=== PATIENT | female | born 1940 | race Caucasian/White ===

== ENCOUNTER 2019-01-23 15:26 | Inpatient (IN) | payer BC, MEDICAID ==
[~2019-01-23] VITALS: Ht 154.9 cm; Wt 59.0 kg
[~2019-01-23 15:26] MED LIST: AMLO10TA PO; ATEN25TA7 PO
[2019-01-23 15:38] VITALS: BP 139/74
--- NOTE | 2019-01-23 15:45 | NUR ---
Patient being evaluated by DR CALLES at bedside.
--- NOTE | 2019-01-23 16:01 | NUR ---
PT TAKEN TO CT VIA [place], ACCOMPANIED BY FREIGHT CAR INSPECTOR.
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
--- NOTE | 2019-01-23 16:15 | NUR ---
PT'S BROTHER; LISA PERKINS PHONE NUMBER [phone]. Addendum: 01/23/19 at 1639 by [facility] BROTHER AT BEDSIDE. PT WAS YELLING AT HIM & CRYING.
[2019-01-23 16:24] LABS: BASOPHILS % (AUTO) 0.3 % (0.0-2.0); EOSINOPHILS # (AUTO) 0.3 K/uL (0-0.4); EOSINOPHILS % (AUTO) 4.8 % (0.0-4.0); HEMATOCRIT 36.7 % (36-48); HEMOGLOBIN 12.2 g/dL (12.0-16.0); LYMPHOCYTES # (AUTO) 1.3 K/uL (2.5-16.5); LYMPHOCYTES % (AUTO) 18.9 % (20.5-51.1); MEAN CORPUSCULAR HEMOGLOBIN 30 pg (27-31); MEAN CORPUSCULAR HGB CONC 33 g/dL (33-37); MEAN CORPUSCULAR VOLUME 90.9 fL (80-94); MONOCYTES # (AUTO) 0.6 K/uL (0.8-1.0); MONOCYTES % (AUTO) 8.3 % (1.7-9.3); NEUTROPHILS # (AUTO) 4.8 K/uL (1.8-7.7); NEUTROPHILS % (AUTO) 67.7 % (42.2-75.2); PLATELET COUNT (AUTO) 258 K/uL (140-450); RED BLOOD CELL COUNT(AUTO) 4.04 MIL/uL (4.20-5.40); RED CELL DISTRIBUTION WIDTH 14.8 % (11.6-13.7)
--- NOTE | 2019-01-23 16:29 | NUR ---
PT W/C ASSISTANCE TO REST ROOM.
[2019-01-23 16:48] LABS: ALBUMIN 3.2 g/dL (3.4-5.0); ANION GAP 13.6 (8-16); ASPARTATE AMINOTRANSFERASE 16 U/L (15-37); CARBON DIOXIDE 26.1 mmol/L (21-32); CHLORIDE 110 mmol/L (98-107); CREATININE 2.3 mg/dL (0.6-1.3); GLUCOSE 111 mg/dL (74-106); POTASSIUM 3.7 mmol/L (3.5-5.1); SODIUM SERUM 146 mmol/L (136-145); THYROID STIMULATING HORMONE 1.45 uIU/mL (0.34-3.74); TOTAL BILIRUBIN 0.3 mg/dL (0.0-1.0); UREA NITROGEN, BLOOD 41 mg/dL (7-18)
[2019-01-23 16:59] LABS: APPEARANCE,URINE CLEAR (CLEAR); BILIRUBIN,URINE NEGATIVE (NEGATIVE); BLOOD, URINE TRACE-L (NEGATIVE); COLOR,URINE YELLOW (YELLOW); LEUKOCYTE ESTERASE ,URINE 2+ (NEGATIVE); NITRITE, URINE POSITIVE (NEGATIVE); UGLUCOSE NEGATIVE (NEGATIVE)
[2019-01-23 17:00] LABS: ACETAMINOPHEN < 0.5 ug/ml (10-30); SALICYLATE < 2.8 mg/dL (2.8-20.0)
[2019-01-23 17:09] LABS: RBC,URINE 0-5 /HPF (0-5); WBC,URINE 80-100 /HPF (0-5)
[2019-01-23] MEDS ORDERED: NACL 0.9% 1,000 ML IV ONE (17:10)
[2019-01-23 17:11] LABS: BARBITURATE, URINE NEG. ng/ml (NEG <=200); BENZODIAZEPINE, URINE NEG. ng/mL (NEG <=200); CANNABINOID, URINE NEG. ng/mL (NEG <=50); COCAINE, URINE NEG. ng/mL (NEG <=300); OPIATE, URINE NEG. ng/mL (NEG <=2000); PHENCYCLIDINE SCREEN,URINE NEG. ng/mL (NEG <=25)
[2019-01-23] MEDS ORDERED: cefTRIAXone 1,000 MG VIAL ONE (17:26)
[2019-01-23] MEDS ORDERED: amLODIPine 5 MG TAB PO ONE (17:40)
[2019-01-23] MEDS ORDERED: MAG SULF 2000 MG/WATER PREMIX 50 ML IV PRN ×2 (19:05→19:30)
[2019-01-23] MEDS ORDERED: ALBUTEROL 0.083% 2.5 MG/3 ML NEBU INH PRN (19:05)
[2019-01-23] MEDS ORDERED: guaiFENesin DM 200/20 MG-10 ML 10 ML UDC PO PRN (19:05)
[2019-01-23] MEDS ORDERED: DOCUSATE SODIUM 250 MG GELCAP PO PRN (19:05)
[2019-01-23] MEDS ORDERED: ACETAMINOPHEN 325 MG TAB PO PRN (19:05)
[2019-01-23] MEDS ORDERED: LORazepam 2 MG/ML VIAL IVP PRN (19:05)
[2019-01-23] MEDS ORDERED: POTASSIUM CHLORIDE 10 MEQ TABER PO PRN (19:05)
[2019-01-23] MEDS ORDERED: IPRATROPIUM 0.02% 0.5 MG/2.5 ML NEBU INH PRN (19:05)
[2019-01-23] MEDS ORDERED: ACETAMINOPHEN 650 MG SUPP RC PRN (19:05)
[2019-01-23] MEDS ORDERED: ONDANSETRON 4 MG/2 ML VIAL IVP PRN (19:05)
[2019-01-23] MEDS ORDERED: POTASSIUM CHLORIDE 40 MEQ, LIDOCAINE 1% 25 MG in NACL 0.9% 250 ML IV PRN (19:05)
[2019-01-23] MEDS ORDERED: BISACODYL 10 MG SUPP RC PRN (19:05)
[2019-01-23] MEDS ORDERED: HYDROcodone/APAP 5/325 MG 1 TAB TAB PO PRN (19:05)
[2019-01-23] MEDS ORDERED: ALUMINUM HYD/MAG/SIMETHICONE 30 ML UDC PO PRN (19:05)
[2019-01-23] MEDS ORDERED: SODIUM PHOSPHATE 118 ML ENEM RC PRN (19:05)
[2019-01-23] MEDS: NACL 0.9% 1,000 ML IV SCH (19:05)
[2019-01-23] MEDS ORDERED: MAGNESIUM OXIDE 400 MG TAB PO PRN (19:05)
--- NOTE | 2019-01-23 19:12 | NUR ---
RECEIVED REPORT FROM JONNATHAN PUCKETT.
--- NOTE | 2019-01-23 19:12 | NUR ---
PT IS AWAKE, ALERT, TALKATIVE. SITTER AT BEDSIDE.
--- NOTE | 2019-01-23 19:13 | NUR ---
Pt report given to NATHANIEL DE SANITAGO. Transfer of care at this time.
--- NOTE | 2019-01-23 19:33 | NUR ---
Patient will be admitted to care of Dr. Sue. Admited to MS. Will go to room 109 B. Belongings list completed. Report to MEGGAN Live.
[2019-01-23 19:35] VITALS: BP 130/67
--- NOTE | 2019-01-23 19:35 | NUR ---
Admitted from ER TO MED SURG UNIT, with chief complaint of 5150 FOR GRAVELY DISABLED , 78 y/o ,Female, Cooperative, AWAKE, A/OX4. RESPIRATION EVEN AND UNLABORED. IV SALINE LOCK AT THE RIGHT FOREARM G20, PATENT AND INTACT. DOES NOT KNOW WHY SHE IS IN THE HOSPITAL, EXPLAINED THAT PD PUT HER ON 5150 FOR GRAVELY DISABLED, LIVING IN POOR CONDITION, WITH RATS IN HER APT. STATED "I'M FEEDING THE RATS WITH POISON." CLAIMED ABLE TO WALK AROUND HOUSE BY HOLDING TO FURNITURE AND USES WALKER ONLY WHENEVER SHE GETS OUT. HEAD TO TOE ASSESSMENT DONE WITH CHARGE NURSE MAGALIE, PATIENT WITH SCATTERED TINY BITES IN HER SKIN. SKIN INTACT. DENIES PAIN 0/10. oriented to call light, bed, phone,television, bathroom, smoking policy,visiting hours, procedures, ID bracelet on. Belongings list checked.
--- NOTE | 2019-01-23 19:35 | NUR ---
Patient's Plan of Care was discussed and reviewed with CERTIFIED PERFORMANCE TECHNOLOGIST: MICHELE ZAVALA
--- NOTE | 2019-01-23 19:40 | NUR ---
SITTER NEAR DOOR MONITORING PATIENT.
--- NOTE | 2019-01-23 20:45 | NUR ---
STATED SHE HAS NOT EATEN SINCE 6 O'CLOCK TODAY. TUNA SANDWICH GIVEN, REQUESTED FOR ANOTHER ONE. ATE 100 %.
--- NOTE | 2019-01-23 21:40 | NUR ---
WAKEN UP FROM SLEEP, CRYING LOUD. WHEN ASKED WHY SHE IS CRYING, STATED "I DON'T KNOW." BACK TO SLEEP AFTER 5 MINUTES.
[2019-01-24] VITALS: BP 132/65
--- NOTE | 2019-01-24 | NUR ---
SLEEPING COMFORTABLY IN BED.
[2019-01-24] MEDS: ZOLPIDEM 5 MG TAB PO PRN (02:40)
--- NOTE | 2019-01-24 02:40 | NUR ---
COMPLAINT OF UNABLE TO SLEEP, MEDICATED WITH AMBIEN ORDERED.
--- NOTE | 2019-01-24 03:40 | NUR ---
SLEEPING COMFORTABLY IN BED.
--- NOTE | 2019-01-24 06:30 | NUR ---
STILL SLEEPING COMFORTABLY IN BED. CONDITION REMAIN STABLE. WILL ENDORSE TO AM NURSE FOR CONTINUITY OF CARE.
--- NOTE | 2019-01-24 07:05 | NUR ---
ENDORSED TO AM SHIFT NURSE FOR CONTINUITY OF CARE.
--- NOTE | 2019-01-24 07:21 | NUR ---
PT IS STILL SLEEPING. NO SIGNS OF DISTRESS. WILL ASSESS PT LATER WHEN SHE IS MORE AWAKE. SCD'S ON. IV FLUIDS, NS INFUSING AT 80ML/HR. IV SITE R FA 20G. WILL CONTINUE TO MONITOR PT.
[2019-01-24 08:00] VITALS: BP 151/65
--- NOTE | 2019-01-24 08:02 | NUR ---
PATIENT HAS BEEN SCREENED AND CATEGORIZED LOW NUTRITION RISK. PATIENT WILL BE SEEN WITHIN 7 DAYS OF ADMISSION. 01/30/[address]
[2019-01-24] MEDS: HYDROcodone/APAP 5/325 MG 1 TAB TAB PO PRN ×2 (08:07→16:22)
--- NOTE | 2019-01-24 08:08 | NUR ---
EATING BREAKFAST, ALL OF THE SUDDEN C/O VICK, CRYING. ADMINISTERED A NORCO. PT IS CALM ONCE AGAIN. WILL CONTINUE TO MONITOR PT.
[2019-01-24 08:17] LABS: ANION GAP 13.4 (8-16); CARBON DIOXIDE 25.4 mmol/L (21-32); CHLORIDE 113 mmol/L (98-107); CREATININE 2.2 mg/dL (0.6-1.3); GLUCOSE 67 mg/dL (74-106); POTASSIUM 3.8 mmol/L (3.5-5.1); SODIUM SERUM 148 mmol/L (136-145); UREA NITROGEN, BLOOD 42 mg/dL (7-18)
[2019-01-24] MEDS: NACL 0.9% 1,000 ML IV SCH (08:26)
--- NOTE | 2019-01-24 09:35 | NUR ---
PT IS ASKING FOR HER BP MEDS. PER PT, SHE TAKES IT EARLY IN THE MORNING. INFORMED HER THAT SHE NEEDS TO BE SEEN BY THE DR FIRST. ONCE SHE IS SEEN, HE WILL ORDER THE BP MEDS. WELDING ESTIMATOR ALSO AWARE. PT IS ANXIOUS. WILL CONTINUE TO MONITOR PT.
--- NOTE | 2019-01-24 13:08 | NUR ---
Spoke to BERTHA Conrad. She told me that the pt. was recently in [facility]. She also told me the this pt. lives with her Mega. 's and [phone]. She also gave me Daughter Quita's .
[2019-01-24] MEDS ORDERED: CIPR250T6 PO (14:55)
[2019-01-24] MEDS ORDERED: FURO-570 PO (15:07)
[2019-01-24] MEDS ORDERED: SIMV20TA6 PO (15:07)
[2019-01-24] MEDS ORDERED: METO25TE2 PO (15:07)
[2019-01-24] MEDS ORDERED: FERR325E14 PO (15:07)
[2019-01-24] MEDS ORDERED: ALLO100T21 PO (15:07)
[2019-01-24] MEDS ORDERED: ATI.5 PO (15:07)
[2019-01-24] MEDS ORDERED: CALC3OIN TP (15:07)
[2019-01-24] MEDS ORDERED: AMLO10TA PO (15:07)
--- NOTE | 2019-01-24 15:08 | NUR ---
DR VACA IS HERE. ASSESSED PT. OK PER TO DC ONCE CLEARED WITH PSYCH. [facility] CALLED. ASKED QUESTIONS RE PT. WILL LET US KNOW IF THEY WILL ACCEPT HIM. HOME MED INFO GOTTEN FROM [facility]. ADDED TO PT CHART. WILL AWAIT FURTHER INSTRUCTIONS.
[2019-01-24] MEDS ORDERED: amLODIPine 5 MG TAB PO SCH (15:34)
[2019-01-24] MEDS ORDERED: FERROUS SULFATE 325 MG TABEC PO SCH (15:36)
[2019-01-24 16:00] VITALS: BP 167/71
[2019-01-24] MEDS: NACL 0.45% 1,000 ML IV SCH (16:13)
--- NOTE | 2019-01-24 17:00 | NUR ---
DR HINDS WAS HERE TO ASSESS PT. PER MD, MAY NOT BE READY TO GO HOME D/T LIVING SITUATION. SS ON THE CASE. WILL AWAIT ORDERS.
--- NOTE | 2019-01-24 18:16 | NUR ---
PT WONDERING IF SHE WILL LEAVE FOR HOME TODAY. NO DISCHARGE ORDERS. NOTIFIED PT THERE AER NO DC ORDERS. MAYBE WAIT TIL TOMORROW. CALLED FRIEND BRETT AND LISA, BROTHER FOR PT. WILL CONTINUE TO MONITOR PT.
--- NOTE | 2019-01-24 19:11 | NUR ---
ENDORSED PT TO THE PIER HAND NURSE AT BEDSIDE FOR CONTINUITY OF CARE. PT IS IN STABLE CONDITION. FINALLY GOT TO SPEAK TO LISA, BROTHER RE DOGS.
--- NOTE | 2019-01-24 19:12 | NUR ---
RECEIVED REPORT FROM DAY SHIFT NURSE MARTHA-RN AT BEDSIDE. PT RESTING IN BED, AOX3-CONFUSED, ON ROOM AIR WITH RIGHT FA #20G RUNNING NS @80ML/HR. DISCUSSED PLAN OF CARE AND PT VERBALIZED UNDERSTANDING. NO S/S OF RESPIRATORY DISTRESS OR DISCOMFORT NOTED AT THIS TIME. BED IN LOWEST POSITION, BED BREAKS ON, BOTH SIDE RAILS UP AND FALL PRECAUTIONS IN PLACE. BED SIDE TABLE AND CALL LIGHT ARE WITHIN REACH. WILL CONTINUE TO MONITOR.
[2019-01-24] MEDS: METOPROLOL 25 MG TAB PO SCH (19:59)
[2019-01-24] MEDS: QUEtiapine FUMARATE 25 MG TAB PO SCH (19:59)
[2019-01-24] MEDS: SIMVASTATIN 20 MG TAB PO SCH (19:59)
[2019-01-24 20:00] VITALS: BP 155/70
--- NOTE | 2019-01-24 20:00 | NUR ---
VITAL SIGNS TAKEN AND TOLERATED WELL. NO S/S OF RESPIRATORY DISTRESS OR DISCOMFORT NOTED AT THIS TIME. SCHEDULED MEDICATIONS GIVEN AND TOLERATED WELL. WILL CONTINUE TO MONITOR.
--- NOTE | 2019-01-24 20:54 | NUR ---
PT C/O ACID REFLUX, MAALOX GIVEN AND TOLERATED WELL. NO S/S OF RESPIRATORY DISTRESS OR DISCOMFORT NOTED AT THIS TIME. WILL CONTINUE TO MONITOR.
[2019-01-24] MEDS ORDERED: LORazepam 0.5 MG TAB PO PRN (21:00)
--- NOTE | 2019-01-24 22:00 | NUR ---
PT SLEEPING IN BED. NO S/S OF RESPIRATORY DISTRESS OR DISCOMFORT NOTED AT THIS TIME. WILL CONTINUE TO MONITOR.
--- NOTE | 2019-01-25 | NUR ---
PT REFUSED VITAL SIGNS SAYING "GET OUT OF MY ROOM AND LET ME SLEEP." NO S/S OF RESPIRATORY DISTRESS OR DISCOMFORT NOTED AT THIS TIME. WILL CONTINUE TO MONITOR.
--- NOTE | 2019-01-25 02:00 | NUR ---
PT CONTINUES TO SLEEP IN BED. NO S/S OF RESPIRATORY DISTRESS OR DISCOMFORT NOTED AT THIS TIME. WILL CONTINUE TO MONITOR.
--- NOTE | 2019-01-25 04:00 | NUR ---
PT CONTINUES TO SLEEP IN BED. NO S/S OF RESPIRATORY DISTRESS OR DISCOMFORT NOTED AT THIS TIME. WILL CONTINUE TO MONITOR.
[2019-01-25] MEDS: NACL 0.45% 1,000 ML IV SCH ×2 (05:30→16:05)
--- NOTE | 2019-01-25 06:00 | NUR ---
PT CONTINUES TO SLEEP IN BED. NO S/S OF RESPIRATORY DISTRESS OR DISCOMFORT NOTED AT THIS TIME. WILL CONTINUE TO MONITOR.
--- NOTE | 2019-01-25 07:30 | NUR ---
RECEIVED BED SIDE REPORT FROM AUTOMOBILE SPRING REPAIRER RN. PT SLEEPING COMFORTABLY IN BED WITH CALL LIGHT WITHIN REACH. SITTER AT BEDSIDE. R FOREARM 20G RUNNING 0.45% NORMAL SALINE, NO INFILTRATION OR PAIN NOTED. PT IS INCONTINENT, PT EVAL ORDER IN AND WILL WAIT FOR PT TO COME. PT A/OX4. BP 186/85, GAVE AM BP MEDS, WILL RE-CHECK BP
[2019-01-25 07:47] LABS: MAGNESIUM 2.1 mg/dL (1.8-2.4)
[2019-01-25 07:50] LABS: ANION GAP 12.8 (8-16); CARBON DIOXIDE 25.6 mmol/L (21-32); CHLORIDE 112 mmol/L (98-107); CREATININE 2.2 mg/dL (0.6-1.3); GLUCOSE 76 mg/dL (74-106); POTASSIUM 4.4 mmol/L (3.5-5.1); SODIUM SERUM 146 mmol/L (136-145); UREA NITROGEN, BLOOD 46 mg/dL (7-18)
[2019-01-25 08:00] VITALS: BP 186/85
[2019-01-25 08:09] LABS: BASOPHILS % (AUTO) 0.5 % (0.0-2.0); EOSINOPHILS # (AUTO) 0.5 K/uL (0-0.4); EOSINOPHILS % (AUTO) 7.1 % (0.0-4.0); HEMATOCRIT 33.8 % (36-48); HEMOGLOBIN 11.2 g/dL (12.0-16.0); LYMPHOCYTES # (AUTO) 1.7 K/uL (2.5-16.5); MEAN CORPUSCULAR HEMOGLOBIN 31 pg (27-31); MEAN CORPUSCULAR HGB CONC 33 g/dL (33-37); MEAN CORPUSCULAR VOLUME 92.2 fL (80-94); MONOCYTES # (AUTO) 0.6 K/uL (0.8-1.0); MONOCYTES % (AUTO) 7.6 % (1.7-9.3); NEUTROPHILS # (AUTO) 4.8 K/uL (1.8-7.7); NEUTROPHILS % (AUTO) 62.8 % (42.2-75.2); PLATELET COUNT (AUTO) 214 K/uL (140-450); RED BLOOD CELL COUNT(AUTO) 3.66 MIL/uL (4.20-5.40); RED CELL DISTRIBUTION WIDTH 14.6 % (11.6-13.7); WHITE BLOOD COUNT (AUTO) 7.6 K/uL (4.8-10.8)
[2019-01-25] MEDS: ALLOPURINOL 100 MG TAB PO SCH (08:36)
[2019-01-25] MEDS: CALCITRIOL 0.25 MCG CAPLF PO SCH (08:36)
[2019-01-25] MEDS: METOPROLOL 25 MG TAB PO SCH ×2 (08:36→19:52)
[2019-01-25] MEDS: amLODIPine 5 MG TAB PO SCH (08:36)
[2019-01-25] MEDS: FERROUS SULFATE 325 MG TABEC PO SCH (08:37)
[2019-01-25] MEDS ORDERED: SIMVASTATIN 20 MG PO SCH (09:00)
[2019-01-25] MEDS ORDERED: CALCITRIOL 0.5 MCG PO SCH (09:00)
[2019-01-25] MEDS ORDERED: CALCITRIOL 0.5 MCG TP SCH (09:00)
--- NOTE | 2019-01-25 10:34 | NUR ---
BP WENT DOWN TO 158/75, WILL CONTINUE TO MONITOR
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
[2019-01-25] MEDS: MORPHINE SULFATE 2 MG/ML SYR IVP PRN (10:47)
--- NOTE | 2019-01-25 12:31 | NUR ---
P.T. NOTES P.T. YASEMIN COMPLETED, REFER TO YASEMIN FOR DETAILS. Addendum: 01/25/19 at 1232 by Luna Ovalle PT Amended: Links added.
--- NOTE | 2019-01-25 12:36 | NUR ---
PT SLEEPING IN BED COMFORTABLY, SITTER AT BEDSIDE, IV RUNNING NS AT 80CC/HR, WILL CONTINUE TO MONITOR
--- NOTE | 2019-01-25 13:00 | NUR ---
Followed up regarding discharge planning with BERTHA Cummings. Informed her that PT is recommended for patient after discharge. Zoila reported that she will be calling the insurance company regarding possible SNF placement. SW/BERTHA will follow up as needed.
--- NOTE | 2019-01-25 14:54 | NUR ---
CALLED [facility] [phone] SPOKE WITH ASHLEY REGARDING SNF PLACEMENT FOR PT PER ASHLEY TO FAX ALL THE REQUEST TO [phone] . WAITING 'S ORDER TO FAX.
--- NOTE | 2019-01-25 15:51 | NUR ---
Patient� nurse called requesting information about patient�s discharge. EDGARD informed patient�s nurse Antony. Antony was also informed of PT results and CM Zoila contacting insurance regarding possible placement.
[2019-01-25 16:00] VITALS: BP 118/64
--- NOTE | 2019-01-25 19:14 | NUR ---
GAVE BED SIDE REPORT TO SEAL MIXING OPERATOR RN. PT IN THE BATHROOM WITH FINANCIAL SYSTEMS MANAGER. IN STABLE CONDITION
--- NOTE | 2019-01-25 19:15 | NUR ---
RECEIVED REPORT FROM DAY SHIFT NURSE RIMMA-RN AT BEDSIDE. PT RESTING IN BED, AOX3-CONFUSED, ON ROOM AIR WITH RIGHT FA #20G RUNNING NS @80ML/HR. DISCUSSED PLAN OF CARE AND PT VERBALIZED UNDERSTANDING. NO S/S OF RESPIRATORY DISTRESS OR DISCOMFORT NOTED AT THIS TIME. BED IN LOWEST POSITION, BED BREAKS ON, BOTH SIDE RAILS UP AND FALL PRECAUTIONS IN PLACE. BED SIDE TABLE AND CALL LIGHT ARE WITHIN REACH. WILL CONTINUE TO MONITOR.
[2019-01-25] MEDS: CIPROFLOXACIN 250 MG TAB PO SCH (19:51)
[2019-01-25] MEDS: QUEtiapine FUMARATE 25 MG TAB PO SCH (19:51)
[2019-01-25] MEDS: SIMVASTATIN 20 MG TAB PO SCH (19:52)
[2019-01-25 20:00] VITALS: BP 151/80
--- NOTE | 2019-01-25 20:00 | NUR ---
VITAL SIGNS TAKEN AND TOLERATED WELL. ELEVATED BP NOTED. NO S/S OF RESPIRATORY DISTRESS OR DISCOMFORT NOTED AT THIS TIME. WILL CONTINUE TO MONITOR.
--- NOTE | 2019-01-25 20:01 | NUR ---
SCHEDULED MEDICATIONS GIVEN AND TOLERATED WELL. NO S/S OF RESPIRATORY DISTRESS OR DISCOMFORT NOTED AT THIS TIME. WILL CONTINUE TO MONITOR.
--- NOTE | 2019-01-25 22:00 | NUR ---
PT RESTING IN BED. NO S/S OF RESPIRATORY DISTRESS OR DISCOMFORT NOTED AT THIS TIME. WILL CONTINUE TO MONITOR.
[2019-01-25] MEDS: ZOLPIDEM 5 MG TAB PO PRN (22:52)
--- NOTE | 2019-01-25 22:52 | NUR ---
PT C/O UNABLE TO SLEEP REQUESTING A SLEEPING AID. AMBIEN GIVEN AND TOLERATED WELL. NO S/S OF RESPIRATORY DISTRESS OR DISCOMFORT NOTED AT THIS TIME. WILL CONTINUE TO MONITOR.
[2019-01-26] VITALS: BP 151/88
--- NOTE | 2019-01-26 | NUR ---
VITAL SIGNS TAKEN AND TOLERATED WELL. NO S/S OF RESPIRATORY DISTRESS OR DISCOMFORT NOTED AT THIS TIME. WILL CONTINUE TO MONITOR.
--- NOTE | 2019-01-26 02:00 | NUR ---
PT CONTINUES TO SLEEP IN BED. NO S/S OF RESPIRATORY DISTRESS OR DISCOMFORT NOTED AT THIS TIME. WILL CONTINUE TO MONITOR.
--- NOTE | 2019-01-26 04:00 | NUR ---
PT CONTINUES TO SLEEP IN BED. NO S/S OF RESPIRATORY DISTRESS OR DISCOMFORT NOTED AT THIS TIME. WILL CONTINUE TO MONITOR.
[2019-01-26] MEDS: NACL 0.45% 1,000 ML IV SCH ×2 (05:25→17:42)
--- NOTE | 2019-01-26 05:25 | NUR ---
NEW BAG OF IVF HUNG AND TOLERATED WELL. NO S/S OF RESPIRATORY DISTRESS OR DISCOMFORT NOTED AT THIS TIME. WILL CONTINUE TO MONITOR.
--- NOTE | 2019-01-26 07:09 | NUR ---
ENDORSED TO DAY SHIFT NURSE ARMAND FOR CONTINUITY OF CARE.
--- NOTE | 2019-01-26 07:10 | NUR ---
RECEIVED BEDSIDE REPORT FROM DAY SHIFT RNCELESTINO. PATIENT SLEEPING IN BED. NO SIGNS OF DISTRESS NOTED ON RA. SAFETY PRECAUTIONS IN PLACE. IV INFUSING WELL TO RIGHT FOREARM 22G. PATIENT STABLE.
[2019-01-26 07:35] LABS: BASOPHILS % (AUTO) 0.5 % (0.0-2.0); EOSINOPHILS # (AUTO) 0.5 K/uL (0-0.4); EOSINOPHILS % (AUTO) 7.6 % (0.0-4.0); HEMOGLOBIN 11.7 g/dL (12.0-16.0); LYMPHOCYTES # (AUTO) 1.7 K/uL (2.5-16.5); LYMPHOCYTES % (AUTO) 27.7 % (20.5-51.1); MEAN CORPUSCULAR HEMOGLOBIN 30 pg (27-31); MEAN CORPUSCULAR HGB CONC 32 g/dL (33-37); MEAN CORPUSCULAR VOLUME 92.1 fL (80-94); MONOCYTES # (AUTO) 0.5 K/uL (0.8-1.0); MONOCYTES % (AUTO) 8.2 % (1.7-9.3); NEUTROPHILS # (AUTO) 3.4 K/uL (1.8-7.7); PLATELET COUNT (AUTO) 176 K/uL (140-450); RED BLOOD CELL COUNT(AUTO) 3.91 MIL/uL (4.20-5.40); RED CELL DISTRIBUTION WIDTH 14.3 % (11.6-13.7)
[2019-01-26 08:00] VITALS: BP 166/71
[2019-01-26 08:09] LABS: ANION GAP 13.3 (8-16); CARBON DIOXIDE 25.2 mmol/L (21-32); CHLORIDE 110 mmol/L (98-107); CREATININE 1.9 mg/dL (0.6-1.3); GLUCOSE 77 mg/dL (74-106); POTASSIUM 4.5 mmol/L (3.5-5.1); SODIUM SERUM 144 mmol/L (136-145); UREA NITROGEN, BLOOD 46 mg/dL (7-18)
[2019-01-26 08:14] LABS: MAGNESIUM 2.1 mg/dL (1.8-2.4)
[2019-01-26] MEDS: MORPHINE SULFATE 2 MG/ML SYR IVP PRN ×2 (09:11→13:56)
--- NOTE | 2019-01-26 09:11 | NUR ---
PATIENT C/O SEVERE HEADACHE/NECK PAIN. MORPHINE GIVEN. VITALS STABLE. WILL CONTINUE TO MONITOR.
[2019-01-26] MEDS: amLODIPine 5 MG TAB PO SCH (09:20)
[2019-01-26] MEDS: FERROUS SULFATE 325 MG TABEC PO SCH (09:21)
[2019-01-26] MEDS: METOPROLOL 25 MG TAB PO SCH ×2 (09:21→20:31)
[2019-01-26] MEDS: CIPROFLOXACIN 250 MG TAB PO SCH ×2 (09:21→20:30)
[2019-01-26] MEDS: CALCITRIOL 0.25 MCG CAPLF PO SCH (09:21)
--- NOTE | 2019-01-26 09:21 | NUR ---
ADMINISTERED SCHEDULED MEDICATIONS. PATIENT TOLERATED WELL. Addendum: 01/26/19 at 1807 by Serene Mcgowan RN DURING MEDICATION ADMINISTRATION PATIENT SAYS INAPPROPRIATE THING. STATED THAT "THE NURSES ARE ALL MASTURBATING INSTEAD OF WORKING. IT'S OKAY TO MASTURBATE, JUST NOT WHILE YOU'RE WORKING."
--- NOTE | 2019-01-26 11:03 | NUR ---
PATIENT SLEEPING. NO SIGNS OF DISTRESS ON RA. SAFETY PRECAUTIONS IN PLACE.
--- NOTE | 2019-01-26 12:30 | NUR ---
PATIENT SLEEPING. NO SIGNS OF DISTRESS ON RA. SAFETY PRECAUTIONS IN PLACE.
--- NOTE | 2019-01-26 13:56 | NUR ---
PATIENT REFUSING TO BE CHANGED. WANTS TO SLEEP IN THE "WARMTH" OF HER PEE. EDUCATED PATIENT ON NEED FOR US TO KEEP HER SKIN CLEAN AND DRY. WITH TEA BAG MACHINE TENDER ASSISTANCE CHANGED HER LINED, AND GOWN, AND PROVIDED KIN CARE. PATIENT /O SEVER HEADACHE DURING REPOSITIONING. ADMINISTERED PRN MORPHINE. WILL REEVALUATE.
--- NOTE | 2019-01-26 14:30 | NUR ---
PATIENT STATES "I AM LEAVING AT 3 PM, BUT DON'T CALL MY BROTHER. HE IS GOING THROUGH MALE MENOPAUSE." "CALL MY [employer], THEY WILL PICK ME UP." PATIENT FLUCTUATES BETWEEN APPROPRIATE AND INAPPROPRIATE RESPONSES. SHE BECAME VERY AGITATED WHEN SHE WAS TOLD SHE IS NOT LEAVING AT 3PM. SHE STATED THAT "I NEED TO GET HOME TO TAKE CARE OF MY DOGS." I CALLED HER BROTHER AND LEFT A MESSAGE TO ENSURE SOMEONE IS CARING FOR THE DOGS.
--- NOTE | 2019-01-26 15:00 | NUR ---
CALLED DR. BARBOSA GROUP TO GET CLARIFICATION OF MENTAL STATUS. PATIENT IS EXHIBITING INABILITY TO CARE FOR SELF. DR. YUEN SIGNAL MAINTENANCE TECHNICIAN FOR DR. CLAYTON. WILL AWAIT FURTHER INSTRUCTIONS.
--- NOTE | 2019-01-26 15:30 | NUR ---
BROTHER CALLED BACK. HE IS TAKING CARE OF THE DOGS AND ASSURED THE PATIENT THAT HE WILL CONTINUE TO TAKE CARE OF THE DOGS. HE HAS TOLD HER SEVERAL TIMES, BUT SHE IS VERY FORGETFUL. ASSURANCE THAT THE DOGS ARE BEING CARED FOR WAS VERY CALMING FOR PATIENT. SHE IS NOW COOPERATIVE AND UNDERSTANDS THAT WE ARE WAITING FOR A HOME SAFETY CHECK BEFORE PATIENT CAN BE DISCHARGED HOME.
[2019-01-26 16:00] VITALS: BP 187/88
--- NOTE | 2019-01-26 17:20 | NUR ---
PATIENT BLOOD PRESSURE IS ELEVATED 187/88. ADMINISTERED CATAPRESS, WILL REEVALUATE AT 1907.
[2019-01-26] MEDS: cloNIDine 0.1 MG TAB PO PRN (17:37)
--- NOTE | 2019-01-26 18:30 | NUR ---
DR. YUEN HAS NOT RETURNED MY CALL. PATIENT WAS EDUCATED THAT DISCHARGE IS PENDING A HOME SAFETY INSPECTION AND PSYCH CONSULTATION; HOWEVER, PATIENT FLUCTUATES BETWEEN VERBALIZING UNDERSTANDING OF THE PLAN OF CARE AND WANTING TO LEAVE AMA. PATIENT IS CURRENTLY CONTENT WITH THE PLAN OF CARE.
--- NOTE | 2019-01-26 19:10 | NUR ---
GAVE BEDSIDE REPORT TO STEWARD/STEWARDESS NIGHT RNLIGIA. PATIENT IN STABLE CONDITION.
--- NOTE | 2019-01-26 19:11 | NUR ---
REPORT RECEIVED FROM AM NURSE AT BEDSIDE. PT IN STABLE CONDITION. AAOX3-4. INTRODUCED SELF TO PT. BOARD UPDATED. NO COMPLAINTS OF PAIN. NO SOB. AFEBRILE. PT 5150 GRAVELY DISABLED. IV SITE R FA 20G RUNNING NS@80ML/HR PATENT AND INTACT. SKIN WARM, DRY, AND INTACT WITH NO OPEN WOUNDS. BED LOCKED IN LOW POSITION. CALL GRIFFIN WITHIN REACH. SAFETY PRECAUTION IN PLACE. ALL NEEDS MET AT THIS TIME.
[2019-01-26] MEDS: QUEtiapine FUMARATE 25 MG TAB PO SCH (20:30)
--- NOTE | 2019-01-26 20:30 | NUR ---
CIPRO, LOPRESSOR, SEROQUEL, AND ZOCOR GIVEN. AMBIEN GIVEN FOR SLEEP. PT TOLERATED WELL.
[2019-01-26] MEDS: ZOLPIDEM 5 MG TAB PO PRN (20:31)
[2019-01-26] MEDS: SIMVASTATIN 20 MG TAB PO SCH (20:32)
--- NOTE | 2019-01-26 22:01 | NUR ---
PT SLEEPING COMFORTABLY IN BED. NO S/S OF DISTRESS NOTED. RESPIRATIONS EVEN, UNLABORED, AND WNL. WILL CONTINUE TO MONITOR.
[2019-01-27] VITALS: BP 131/61
--- NOTE | 2019-01-27 00:05 | NUR ---
PT SLEEPING COMFORTABLY IN BED BUT AROUSABLE FOR VS CHECK. NO S/S OF DISTRESS NOTED. NO COMPLAINTS OF PAIN. NO SOB. AFEBRILE. WILL CONTINUE TO MONITOR.
[2019-01-27] MEDS: diphenhydrAMINE 50 MG/ML VIAL IVP PRN ×2 (01:47→18:06)
--- NOTE | 2019-01-27 01:47 | NUR ---
BENADRYL GIVEN FOR ITCHINESS. PT TOLERATED WELL.
--- NOTE | 2019-01-27 04:00 | NUR ---
PT SLEEPING COMFORTABLY IN BED. NO S/S OF DISTRESS NOTED. PT HAS NO COMPLAINTS OF PAIN. NO SOB. AFEBRILE. NO COMPLAINTS OF ITCHINESS. WILL CONTINUE TO MONITOR.
--- NOTE | 2019-01-27 05:01 | NUR ---
PT SLEEPING COMFORTABLY IN BED SUPINE. NO S/S OF DISTRESS NOTED. WILL CONTINUE TO MONITOR.
[2019-01-27] MEDS: NACL 0.45% 1,000 ML IV SCH ×3 (05:37→22:30)
--- NOTE | 2019-01-27 07:13 | NUR ---
REPORT GIVEN TO AM NURSE AT BEDSIDE. PT IN STABLE CONDITION.
[2019-01-27 07:39] LABS: BASOPHILS % (AUTO) 0.5 % (0.0-2.0); EOSINOPHILS # (AUTO) 0.5 K/uL (0-0.4); EOSINOPHILS % (AUTO) 7.4 % (0.0-4.0); HEMATOCRIT 34.6 % (36-48); HEMOGLOBIN 11.2 g/dL (12.0-16.0); LYMPHOCYTES # (AUTO) 1.6 K/uL (2.5-16.5); LYMPHOCYTES % (AUTO) 24.1 % (20.5-51.1); MEAN CORPUSCULAR HEMOGLOBIN 30 pg (27-31); MEAN CORPUSCULAR HGB CONC 32 g/dL (33-37); MEAN CORPUSCULAR VOLUME 92.1 fL (80-94); MONOCYTES # (AUTO) 0.5 K/uL (0.8-1.0); MONOCYTES % (AUTO) 7.6 % (1.7-9.3); NEUTROPHILS # (AUTO) 3.9 K/uL (1.8-7.7); NEUTROPHILS % (AUTO) 60.4 % (42.2-75.2); PLATELET COUNT (AUTO) 201 K/uL (140-450); RED BLOOD CELL COUNT(AUTO) 3.76 MIL/uL (4.20-5.40); RED CELL DISTRIBUTION WIDTH 14.7 % (11.6-13.7); WHITE BLOOD COUNT (AUTO) 6.5 K/uL (4.8-10.8)
[2019-01-27 08:00] VITALS: BP 150/72
[2019-01-27 08:05] LABS: ANION GAP 13.8 (8-16); CARBON DIOXIDE 23.4 mmol/L (21-32); CHLORIDE 109 mmol/L (98-107); CREATININE 2.1 mg/dL (0.6-1.3); GLUCOSE 89 mg/dL (74-106); POTASSIUM 4.2 mmol/L (3.5-5.1); SODIUM SERUM 142 mmol/L (136-145); UREA NITROGEN, BLOOD 50 mg/dL (7-18)
[2019-01-27 08:10] LABS: PHOSPHORUS 4.2 mg/dL (2.5-4.9)
[2019-01-27] MEDS: CALCITRIOL 0.25 MCG CAPLF PO SCH (09:39)
[2019-01-27] MEDS: FERROUS SULFATE 325 MG TABEC PO SCH (09:40)
[2019-01-27] MEDS: METOPROLOL 25 MG TAB PO SCH ×2 (09:40→21:10)
[2019-01-27] MEDS: CIPROFLOXACIN 250 MG TAB PO SCH ×2 (09:41→21:10)
[2019-01-27] MEDS: amLODIPine 5 MG TAB PO SCH (09:41)
--- NOTE | 2019-01-27 09:55 | NUR ---
SPOKE WITH DR. HINDS AT THE BEDSIDE, DOCTOR STATED NO MORE HOLD FOR PT. PT CAN BE DISCHARGED HOME PENDING HOME VISIT BY ELEMENTARY SPANISH TEACHER IF NOT SNF IS A POSSIBILITY WITH PT'S WORSENING DEMENTIA.
--- NOTE | 2019-01-27 11:30 | NUR ---
PATIENT STABLE, RESTING IN BED, NO SIGNS OF DISTRESS ON RA. SAFETY PRECAUTIONS IN PLACE.
--- NOTE | 2019-01-27 13:45 | NUR ---
PATIENT SLEEPING. NO SIGNS OF DISTRESS ON RA AT THIS TIME. SAFETY PRECAUTIONS IN PLACE.
--- NOTE | 2019-01-27 15:15 | NUR ---
PATIENT CALLED FAMILY TO PICK HER UP. SHE HAS NOT BEEN CLEARED FOR DISCHARGE TO HOME. HOME SAFETY INSPECTION STILL PENDING. PATIENT HAD PREVIOUSLY VERBALIZED UNDERSTANDING OF POSSIBLE MONDAY DISCHARGE BUT IS VERY FORGETFUL.
[2019-01-27 16:00] VITALS: BP 154/71
[2019-01-27] MEDS: MORPHINE SULFATE 2 MG/ML SYR IVP PRN (18:06)
--- NOTE | 2019-01-27 18:15 | NUR ---
PATIENT IS AGITATED. SCREAMING THAT SHE HAS BED BUGS AND THAT THEY ARE GOING IN HER EARS AND HER VAGINA. SHE STATES HER HEAD IS ITCHING BECAUSE OF THE BED BUGS. I HAVE CHECKED HER HAIR AND DO NOT SEE ANY BUGS. SHE ALSO STATES SHE HAS NECK PAIN. WILLING TO TAKE PAIN MEDS FOR NECK PAIN AND BENADRYL FOR ITCHING. PATIENT HAS BEEN REFUSING PAIN MEDS, BUT IS NOW WILLING TO TAKE THEM. ADMINISTERED PRN BENADRYL AND MORPHINE. PATIENT REQUESTED THAT I PUT SCOTCH TAPE ON HER EARS. I OBLIGED HER. OIV INFUSING WELL, SAFETY PRECAUTIONS IN PLACE. SAT WITH PATIENT AND COMFORTED HER. SHE IS NOW CALM AND SHOWING NO SIGNS OF DISTRESS
--- NOTE | 2019-01-27 19:15 | NUR ---
GAVE BEDSIDE REPORT TO DEVELOPMENTAL WRITING INSTRUCTOR RNLIGIA. PATIENT SLEEPING. NO SIGNS OF DISTRESS ON RA. SAFETY PRECAUTIONS IN PLACE.
--- NOTE | 2019-01-27 19:16 | NUR ---
REPORT RECEIVED FROM AM NURSE AT BEDSIDE. PT IN STABLE CONDITION. AAOX3-4. INTRODUCED SELF TO PT. BOARD UPDATED. PT HAS COMPLAINTS OF PAIN BUT REFUSES MEDS. NO SOB. AFEBRILE. PT IS AMBULATORY WITH ASSIST. IV SITE R FA 20G RUNNING 1/2NS@80ML/HR PATENT AND INTACT. SKIN WARM, DRY, AND INTACT WITH NO OPEN WOUNDS. BED LOCKED IN LOW POSITION. CALL GRIFFIN WITHIN REACH. SAFETY PRECAUTION IN PLACE. ALL NEEDS MET AT THIS TIME. WILL CONTINUE TO MONITOR.
[2019-01-27] MEDS: SIMVASTATIN 20 MG TAB PO SCH (21:10)
[2019-01-27] MEDS: QUEtiapine FUMARATE 25 MG TAB PO SCH (21:10)
--- NOTE | 2019-01-27 21:10 | NUR ---
CIPRO, LOPRESSOR, SEROQUEL, AND ZOCOR GIVEN PO. PT TOLERATED WELL.
[2019-01-27] MEDS: ZOLPIDEM 5 MG TAB PO PRN (22:20)
--- NOTE | 2019-01-27 22:20 | NUR ---
AMBIEN GIVEN TO HELP WITH SLEEP. PT TOLERATED WELL.
[2019-01-28] VITALS: BP 148/55
--- NOTE | 2019-01-28 00:45 | NUR ---
PT SLEEPING COMFORTABLY IN BED. NO S/S OF DISTRESS NOTED. NO COMPLAINTS OF PAIN. NO SOB. AFEBRILE.
--- NOTE | 2019-01-28 02:15 | NUR ---
PT ON BEDSIDE COMMODE. NO S/S OF DISTRESS NOTED. WILL CONTINUE TO MONITOR.
[2019-01-28] MEDS: NACL 0.45% 1,000 ML IV SCH (03:30)
--- NOTE | 2019-01-28 04:20 | NUR ---
PT SLEEPING COMFORTABLY IN BED. NO S/S OF DISTRESS NOTED. NO COMPLAINTS OF PAIN. NO SOB. AFEBRILE. WILL CONTINUE TO MONITOR.
[2019-01-28] MEDS: MORPHINE SULFATE 2 MG/ML SYR IVP PRN ×2 (06:36→20:57)
--- NOTE | 2019-01-28 06:36 | NUR ---
MORPHINE GIVEN FOR 10/10 NECK PAIN. PT TOLERATED WELL.
--- NOTE | 2019-01-28 07:20 | NUR ---
RECEIVED BED SIDE REPORT FROM WEBSPHERE CONSULTANT RN. PT IN STABLE CONDITION, SLEEPING COMFORTABLY. BED ALARM ON AND CALL LIGHT WITHIN REACH. NO LONGER HAS A SITTER. POC IS TO WAIT FOR SW FOR SNF PLACEMENT. SKIN INTACT, FLEA BITES PRESENT IN BILATERAL ARMS. R FOREARM 20G RUNNING NS AT 80ML/HR. WILL CONTINUE TO MONITOR
[2019-01-28 07:28] LABS: BASOPHILS % (AUTO) 0.3 % (0.0-2.0); EOSINOPHILS # (AUTO) 0.5 K/uL (0-0.4); EOSINOPHILS % (AUTO) 7.3 % (0.0-4.0); HEMATOCRIT 32.3 % (36-48); HEMOGLOBIN 10.7 g/dL (12.0-16.0); LYMPHOCYTES # (AUTO) 1.1 K/uL (2.5-16.5); LYMPHOCYTES % (AUTO) 15.2 % (20.5-51.1); MEAN CORPUSCULAR HEMOGLOBIN 31 pg (27-31); MEAN CORPUSCULAR HGB CONC 33 g/dL (33-37); MEAN CORPUSCULAR VOLUME 92.3 fL (80-94); MONOCYTES # (AUTO) 0.7 K/uL (0.8-1.0); NEUTROPHILS # (AUTO) 4.9 K/uL (1.8-7.7); NEUTROPHILS % (AUTO) 67.2 % (42.2-75.2); PLATELET COUNT (AUTO) 188 K/uL (140-450); RED CELL DISTRIBUTION WIDTH 14.7 % (11.6-13.7); WHITE BLOOD COUNT (AUTO) 7.3 K/uL (4.8-10.8)
[2019-01-28 07:44] LABS: ANION GAP 14.5 (8-16); CHLORIDE 108 mmol/L (98-107); CREATININE 2.3 mg/dL (0.6-1.3); GLUCOSE 80 mg/dL (74-106); MAGNESIUM 2.2 mg/dL (1.8-2.4); PHOSPHORUS 4.5 mg/dL (2.5-4.9); POTASSIUM 4.5 mmol/L (3.5-5.1); SODIUM SERUM 142 mmol/L (136-145); UREA NITROGEN, BLOOD 58 mg/dL (7-18)
[2019-01-28 08:00] VITALS: BP 156/80
--- NOTE | 2019-01-28 08:35 | NUR ---
PT BEGAN SCREAMING STATING SHE WAS IN EXCRUCIATING PAIN. STATES THAT SHE HAS "BED BUG BITE PAIN" 10/10 ALL OVER HER HEAD AND BACK. YOUTH TEACHER GAVE HER A BED BATH. GAVE NORCO PER MD ORDER. WILL CONTINUE TO MONITOR
[2019-01-28] MEDS: amLODIPine 5 MG TAB PO SCH (08:44)
[2019-01-28] MEDS: METOPROLOL 25 MG TAB PO SCH ×2 (08:44→20:56)
[2019-01-28] MEDS: ALLOPURINOL 100 MG TAB PO SCH (08:44)
[2019-01-28] MEDS: FERROUS SULFATE 325 MG TABEC PO SCH (08:44)
[2019-01-28] MEDS: CALCITRIOL 0.25 MCG CAPLF PO SCH (08:44)
[2019-01-28] MEDS: CIPROFLOXACIN 250 MG TAB PO SCH ×2 (08:45→20:56)
--- NOTE | 2019-01-28 10:38 | NUR ---
SPOKE WITH THE PATIENT REGARDING A SHORT TERM SNF PLACEMENT. I EXPLAINED THAT THE DR RECOMMENDED TO HAVE A SHORT TERM REHAB PER PHYSICAL THERAPY. PATIENT STATED " I WANTED TO GO HOME TO TAKE CARE OF MY PUPPIES, I DON'T NEED HELP ,I DON'T WANT TO GO ANYWHERE EXCEPT MY HOUSE I CAN GET A CHEMICAL SPRAYER BY MY SELF. 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 WILL DISCUSS WITH DR HINDS (PSYCHIATRY) AND DR ATTENDING DR VACA .
--- NOTE | 2019-01-28 10:38 | NUR ---
EDGARD HIGH CAME TO TALK TO PT ABOUT SNF PLACEMENT. PT CONTINUES TO THINK HER LIVING SITUATION IS FINE. PT REFUSED SNF. WILL LET KNOW WHEN HE ARRIVES. VS STABLE, IN NO PAIN AFTER GIVING NORCO.
--- NOTE | 2019-01-28 14:56 | NUR ---
EDGARD contacted [facility] and spoke to Jann. Jann referred SW to speak to Tamica Hsu [phone]; option 3. EDGARD left message to Tamica regarding Case Name: Kelly Ray, Case#: [id number]. EDGARD stated on voicemail that SW will be unavailable 01/29/2019 and to speak to BERTHA Cummings regarding this case if phone call is not received today.
[2019-01-28 16:00] VITALS: BP 168/71
[2019-01-28] MEDS: cloNIDine 0.1 MG TAB PO PRN ×2 (16:34→18:41)
--- NOTE | 2019-01-28 19:27 | NUR ---
GAVE BED SIDE REPORT. PT IN STABLE CONDITION
--- NOTE | 2019-01-28 19:29 | NUR ---
RECEIVED PT FROM RN DAY SHIFT PT IS AAOX3 RESTING ON BED IV ON RT ARM INFUSING WELL NOT SIGN OF PAIN NOTED AT THIS TIME, REPOSITIONED INITIAL ASSESSMENT DONE
[2019-01-28 20:00] VITALS: BP 134/64
[2019-01-28] MEDS: QUEtiapine FUMARATE 25 MG TAB PO SCH (20:56)
[2019-01-28] MEDS: SIMVASTATIN 20 MG TAB PO SCH (20:57)
--- NOTE | 2019-01-28 21:00 | NUR ---
PT REPOSITIONED SPONGE BATH GIVEN LINEN CHANGED A BIG WATERY STOOL, ON TELMETRY SR
--- NOTE | 2019-01-29 | NUR ---
PT HAS BEEN ;MONITORING CLOSE , PT QUIET SLEEPING WELL NOT SIGN OF DISTRESS NOTED
--- NOTE | 2019-01-29 03:00 | NUR ---
PT IS ASSISTED TO USE BSC NOT DISTRESS NOTED IV ONRT ARM INFUSING WELL
--- NOTE | 2019-01-29 05:00 | NUR ---
SPONGE BATH GIVEN LINEN CHANGED DENIES ANY PAIN OR DISCOMFORT, CME BACK TO SLEEP
[2019-01-29] MEDS: NACL 0.45% 1,000 ML IV SCH ×2 (07:35→20:20)
--- NOTE | 2019-01-29 07:35 | NUR ---
PT WILL BE ENDORSED TO DAY SHIFT NURSE FOR CONTINUITY OF CARE
[2019-01-29 07:36] LABS: ANION GAP 13.2 (8-16); CARBON DIOXIDE 23.1 mmol/L (21-32); CHLORIDE 108 mmol/L (98-107); CREATININE 2.1 mg/dL (0.6-1.3); GLUCOSE 87 mg/dL (74-106); POTASSIUM 4.3 mmol/L (3.5-5.1); SODIUM SERUM 140 mmol/L (136-145); UREA NITROGEN, BLOOD 58 mg/dL (7-18)
--- NOTE | 2019-01-29 07:36 | NUR ---
RECEIVED BEDSIDE REPORT FROM LIGHTING SPECIALIST NURSE. PATIENT IS AWAKE, ALERT AND ORIENTEDX2. NO SIGNS OF DISTRESS ON RA. SKIN HAS SCABS FROM BITES, POSSIBLE FLEA BITES. PATIENT HAS WEAKNESS, FALL RISK PROTOCOL IN PLACE. AMBULATE W WALKER AND ASSIST. R AC 20G INFUSING 1/2NS AT 80. CLEAN, DRY AND INTACT. PATIENT IS INCONTINENT. BED IN LOW POSITION. CALL LIGHT WITHIN REACH. WILL CONTINUE TO MONITOR THE PATIENT
[2019-01-29 07:45] LABS: MAGNESIUM 2.2 mg/dL (1.8-2.4); PHOSPHORUS 4.7 mg/dL (2.5-4.9)
[2019-01-29 08:00] VITALS: BP 159/68
[2019-01-29] MEDS: FERROUS SULFATE 325 MG TABEC PO SCH (09:31)
[2019-01-29] MEDS: CIPROFLOXACIN 250 MG TAB PO SCH ×2 (09:31→20:43)
[2019-01-29] MEDS: CALCITRIOL 0.25 MCG CAPLF PO SCH (09:31)
[2019-01-29] MEDS: amLODIPine 5 MG TAB PO SCH (09:32)
[2019-01-29] MEDS: METOPROLOL 25 MG TAB PO SCH ×2 (09:32→20:43)
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
--- NOTE | 2019-01-29 10:00 | NUR ---
CALLED EDGARD KRISHNAMURTHY APS LEFT A MESSAGE FOR APS REPORT
[2019-01-29 10:31] LABS: BASOPHILS % (AUTO) 0.4 % (0.0-2.0); EOSINOPHILS # (AUTO) 0.5 K/uL (0-0.4); EOSINOPHILS % (AUTO) 8.1 % (0.0-4.0); HEMATOCRIT 32.4 % (36-48); HEMOGLOBIN 10.5 g/dL (12.0-16.0); LYMPHOCYTES # (AUTO) 1.2 K/uL (2.5-16.5); LYMPHOCYTES % (AUTO) 18.4 % (20.5-51.1); MEAN CORPUSCULAR HEMOGLOBIN 30 pg (27-31); MEAN CORPUSCULAR HGB CONC 32 g/dL (33-37); MEAN CORPUSCULAR VOLUME 92.2 fL (80-94); MONOCYTES # (AUTO) 0.7 K/uL (0.8-1.0); MONOCYTES % (AUTO) 11.1 % (1.7-9.3); NEUTROPHILS # (AUTO) 4.1 K/uL (1.8-7.7); PLATELET COUNT (AUTO) 186 K/uL (140-450); RED BLOOD CELL COUNT(AUTO) 3.52 MIL/uL (4.20-5.40); RED CELL DISTRIBUTION WIDTH 14.6 % (11.6-13.7); WHITE BLOOD COUNT (AUTO) 6.6 K/uL (4.8-10.8)
--- NOTE | 2019-01-29 11:54 | NUR ---
HEBER FROM [facility]TALKED TO THE PATIENT ,WILL REVIEW WITH CM AND WILL CALL BACK
--- NOTE | 2019-01-29 11:57 | NUR ---
PATIENT SITTING IN BED. NO SIGNS OF DISTRESS. WILL CONTINUE TO MONITOR THE PATIENT. PATIENT STATES SHE DOES NOT WANT TO EAT CHICKEN, CALLED [facility] AND ASKED IF PATIENT CAN GET A [employer] REQUESTED BY PATIENT. THEY SAID OK. 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 CALLED BRETT AT [phone], PER BRETT SHE IS NOT THE RECREATION PROFESSOR, SHE SAID SHE WOULD BE HAPPY TO HELP AND FEED PATIENTS DOGS BUT SHE HAS NO ACCESS TO PATIENTS HOME, SHE HAS NOT KEYS AND THE ONLY PERSON W THE KEYS IS PATIENTS BROTHER. WHEN ON THE PHONE Angel BRETT THERE WAS A MALE VOICE SCREAMING "DONT CALL THIS NUMBER AGAIN!" AND BRETT APOLOGIZED FOR THE MALE.
--- NOTE | 2019-01-29 12:07 | NUR ---
PATIENT IS AWARE OF MINE AND CARTER CONVERSATION. SHE SAID YES SHE IS AWARE BUT WANTS BRETT TO BE HER PUBLIC SAFETY DIRECTOR AND THAT HER BROTHER IS GOING THROUGH MALE MENOPAUSE
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
--- NOTE | 2019-01-29 13:36 | NUR ---
STUDENT NURSES IN THE ROOM W PATIENT. PATIENT COMPLAINS SHE DIDNT GET A MENU. ASKED ROYER FROM [facility] TO PLS BRING A MENU FOR THE PATIENT. SHE SAID OK.
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
--- NOTE | 2019-01-29 14:38 | NUR ---
PATIENT IS SLEEPING. NO SIGNS OF DISTRESS. WILL CONTINUE TO MONITOR
--- NOTE | 2019-01-29 15:37 | NUR ---
I RECEIVED A CALL FROM MENDY RENE FROM [facility] , PER MENDY SHE DIDN'T VISIT THE HOUSE BUT THE OFFICER WENT TO HER HOUSE , I EXPLAINED THE D/C PLAN FOR THE PATIENT TO HAVE A SAFE DISCHARGE . MENDY STATED SHE WILL CONTACT THE OFFICER AND WILL CALL BACK.
[2019-01-29 16:00] VITALS: BP 156/75
--- NOTE | 2019-01-29 16:45 | NUR ---
PATIENT SCREAMING "IM COLD NURSE!, IM COLD! NURSE!!! NURSE!!!" WENT TO THE ROOM AND ASKED WHAT SHE WOULD LIKE. SHE SAID A BLANKET. GOT HER TWO COLD BLANKETS AND CHANGED THE TEMP SETTING TO WARM. PATIENT SAID THANK YOU. SHE SAID SHE DOES NOT LIKE TO SCREAM BUT IS SO COLD. TOLD HER SHE CAN USE HER CALL LIGHT. PATIENT SAID SHE DID NOT REALIZE IT WAS THERE. PATIENT NEEDS REINFORCEMENT. SHE SAID SHE WILL USE THE CALL LIGHT NOW
[2019-01-29] MEDS: HYDROcodone/APAP 5/325 MG 1 TAB TAB PO PRN (18:58)
--- NOTE | 2019-01-29 18:58 | NUR ---
NEW IV ON L FA 22G. CLEAN, DRY AND INTACT. OLD IV REMOVED. TIP INTACT.
--- NOTE | 2019-01-29 19:10 | NUR ---
GAVE BEDSIDE REPORT TO ENGRAVING OPERATOR NURSE. PATIENT ENDORSED IN STABLE CONDITION. ENDORSED ENGRAVING OPERATOR TO DO PAIN REASSESSMENT FOR MARIVEL
--- NOTE | 2019-01-29 19:10 | NUR ---
RECEIVED REPORT FROM DAY SHIFT NURSE FOR CONTINUITY OF CARE. PATIENT LYING DOWN IN BED, AWAKE, COMPLAINING OF HEAD PAIN. WAS GIVEN MEDICATION FOR PAIN AT 1858 BY DAY SHIFT NURSE. PATIENT IN ROOM AIR, HAS 22 GA IV ON LEFT FOREARM WITH 1/2 NORMAL SALINE, RUNNING AT 80 ML/HR. BED IN LOW POSITION, SIDE RAILS ARE UP, CALL LIGHT WITHIN REACH. WILL MONITOR PATIENT.
[2019-01-29] MEDS: QUEtiapine FUMARATE 25 MG TAB PO SCH (20:43)
[2019-01-29] MEDS: SIMVASTATIN 20 MG TAB PO SCH (20:43)
--- NOTE | 2019-01-29 20:43 | NUR ---
PATIENT LYING DOWN IN BED, AWAKE. HUNG NEW IV 1/2 NS AT 80 ML/HR. ADMINISTERED PM MEDICATION. PATIENT REFUSED THE OTHER 25 MG OF SEROQUEL. PATIENT TOLERATED MEDICATIONS WELL. WILL CONTINUE TO MONITOR PATIENT.
--- NOTE | 2019-01-29 21:30 | NUR ---
PATIENT LYING DOWN IN BED, AWAKE. REQUESTED TO TAKE THE OTHER 25 MG OF SEROQUEL. WILL CONTINUE TO MONITOR PATIENT.
--- NOTE | 2019-01-29 23:00 | NUR ---
MADE ROUNDS. PT ASLEEP. NO DISCOMFORT NOTED.
[2019-01-30] VITALS: BP 156/75
--- NOTE | 2019-01-30 | NUR ---
PATIENT LYING DOWN IN BED, APPEARS TO BE SLEEPING. NO SIGNS OF DISTRESS AT THIS TIME. WILL CONTINUE TO MONITOR PATIENT.
--- NOTE | 2019-01-30 01:00 | NUR ---
MADE ROUNDS. PT ASLEEP. NO S/S OF ANY DISCOMFORT NOR PAIN NOTED.
--- NOTE | 2019-01-30 02:15 | NUR ---
PATIENT LYING DOWN IN BED, APPEARS TO BE SLEEPING. NO SIGNS OF DISTRESS. SIDE RAILS ARE UP, CALL LIGHT WITHIN REACH, AND BED IS IN LOW POSITION. WILL CONTINUE TO MONITOR PATIENT.
--- NOTE | 2019-01-30 04:00 | NUR ---
PT C/O DISCOMFORT ON BOTH LEGS. REMOVED THE SCD ON BOTH LEGS .
[2019-01-30 06:26] LABS: BASOPHILS % (AUTO) 0.4 % (0.0-2.0); EOSINOPHILS # (AUTO) 0.5 K/uL (0-0.4); HEMATOCRIT 29.7 % (36-48); HEMOGLOBIN 9.8 g/dL (12.0-16.0); LYMPHOCYTES # (AUTO) 1.2 K/uL (2.5-16.5); LYMPHOCYTES % (AUTO) 19.1 % (20.5-51.1); MEAN CORPUSCULAR HEMOGLOBIN 30 pg (27-31); MEAN CORPUSCULAR HGB CONC 33 g/dL (33-37); MEAN CORPUSCULAR VOLUME 91.8 fL (80-94); MONOCYTES # (AUTO) 0.7 K/uL (0.8-1.0); MONOCYTES % (AUTO) 11.2 % (1.7-9.3); NEUTROPHILS # (AUTO) 3.7 K/uL (1.8-7.7); NEUTROPHILS % (AUTO) 60.3 % (42.2-75.2); PLATELET COUNT (AUTO) 191 K/uL (140-450); RED BLOOD CELL COUNT(AUTO) 3.24 MIL/uL (4.20-5.40); RED CELL DISTRIBUTION WIDTH 14.1 % (11.6-13.7); WHITE BLOOD COUNT (AUTO) 6.1 K/uL (4.8-10.8)
--- NOTE | 2019-01-30 07:07 | NUR ---
ENDORSED PATIENT TO DAY SHIFT NURSE FOR CONTINUITY OF CARE. PATIENT IN STABLE CONDITION. BED IN LOW POSITION, SIDE RAILS ARE UP, AND CALL LIGHT WITHIN REACH.
--- NOTE | 2019-01-30 07:08 | NUR ---
RECEIVED BEDSIDE REPORT FROM CARDIAC TECHNICIAN NURSE. PATIENT IS AWAKE, ALERT AND ORIENTEDX2. NO SIGNS OF DISTRESS ON RA. PATIENT NEEDS TO AMBULATE W ASSIST. WEAKNESS, FALL RISK PROTOCOL IN PLACE. IV ON L FA 22G INFUSING 1/2NS AT 80. CLEAN, DRY AND INTACT. PATIENT IS INCONTINENT. BED IN LOW POSITION. CALL LIGHT WITHIN REACH. WILL CONTINUE TO MONITOR THE PATIENT
[2019-01-30 07:09] LABS: ANION GAP 15.5 (8-16); CARBON DIOXIDE 21.4 mmol/L (21-32); CHLORIDE 109 mmol/L (98-107); POTASSIUM 3.9 mmol/L (3.5-5.1); SODIUM SERUM 142 mmol/L (136-145)
[2019-01-30 07:10] LABS: CREATININE 2.1 mg/dL (0.6-1.3); GLUCOSE 114 mg/dL (74-106); UREA NITROGEN, BLOOD 55 mg/dL (7-18)
[2019-01-30 07:14] LABS: MAGNESIUM 2.1 mg/dL (1.8-2.4); PHOSPHORUS 4.3 mg/dL (2.5-4.9)
[2019-01-30 08:00] VITALS: BP 146/62
[2019-01-30] MEDS: amLODIPine 5 MG TAB PO SCH (08:22)
[2019-01-30] MEDS: CALCITRIOL 0.25 MCG CAPLF PO SCH (08:23)
[2019-01-30] MEDS: FERROUS SULFATE 325 MG TABEC PO SCH (08:23)
[2019-01-30] MEDS: ALLOPURINOL 100 MG TAB PO SCH (08:23)
[2019-01-30] MEDS: CIPROFLOXACIN 250 MG TAB PO SCH (08:23)
[2019-01-30] MEDS: METOPROLOL 25 MG TAB PO SCH ×2 (08:23→20:52)
--- NOTE | 2019-01-30 08:26 | NUR ---
ADMINISTERED MEDS. EDUCATED PATIENT ON SIDE EFFECTS. PATIENT TOLERATED WELL. PATIENT TALKING TO BROTHER ON THE PHONE, MARTÍNEZ. MARTÍNEZ IS CONCERNED ABOUT THE PATIENTS DISCHARGE. HE FEELS LIKE IT MAY NOT BE SAFE. HIS NUMBER IS [phone]. I TOLD HIM I WOULD TALK TO DR VACA AND GUZMAN ABOUT HIS CONCERNS.
[2019-01-30] MEDS: NACL 0.45% 1,000 ML IV SCH ×2 (09:05→20:53)
--- NOTE | 2019-01-30 10:00 | NUR ---
SOCIAL WORKERS AT BEDSIDE COMMUNICATING WITH PATIENT AT BEDSIDE. WILL CONTINUE TO MONITOR THE PATIENT
--- NOTE | 2019-01-30 10:03 | NUR ---
EDGARD, BERTHA Cummings, and [facility] Practitioner: Laura Hsu [phone] met with patient to discuss discharge plan. Laura Hsu stated that patient was in agreement to go be placed to SNF upon discharge for PT. Patient stated that she would agree to SNF once her dogs are taken care of. Laura stated that she has contacted patient's brother Familia Wyatt [phone] to retrieve the dogs, otherwise [email or web address] will be contacted for placement of dogs. Laura informed EDGARD that patient was in the process of being evicted, and has had a 90-day eviction notice. Per Laura, police report her home inhabitable. Per BERTHA, SNF will meet with patient for possible placement. EDGARD/BERTHA will follow up as needed.
--- NOTE | 2019-01-30 12:24 | NUR ---
PATIENT EATING AT BEDSIDE. NO SIGNS OF DISTRESS. WILL CONTINUE TO MONITOR THE PATIENT
--- NOTE | 2019-01-30 12:55 | NUR ---
I RECEIVED A CALL FOR MENDY FORREST , SHE TALKED TO PT'S BROTHER MARTÍNEZ [phone] , PER MENDY HE DOESN'T WANT TO TAKE HER AND HE IS OK WITH SNF PLACEMENT.
--- NOTE | 2019-01-30 13:19 | NUR ---
PATIENT IS ON THE PHONE AT THIS TIME. NO SIGNS OF DISTRESS. WILL CONTINUE TO MONITOR THE PATIENT
--- NOTE | 2019-01-30 15:05 | NUR ---
PATIENT WANTED BLANKETS. GAVE PATIENT TWO WARM BLANKETS
--- NOTE | 2019-01-30 15:21 | NUR ---
01/30/19 RD INITIAL ASSESSMENT COMPLETED PLEASE REFER TO NUTRITION ASSESSMENT UNDER CARE ACTIVITY FOR ESTIMATED NUTRITIONAL NEEDS. 1. CONTINUE REGULAR DIET TOLERATED 2. HONOR FOOD PREFERENCES OF PATIENT 3. RD TO FOLLOW-UP 5-7 DAYS, LOW RISK [address]
[2019-01-30 16:00] VITALS: BP 147/62
--- NOTE | 2019-01-30 17:46 | NUR ---
PATIENT REQUESTED VEGGIE BROTH AND VEGGIES AND CRANBERRY APPLE TEA FROM [facility]. [facility] BROUGHT PATIENT HER REQUESTS. NO COMPLAINTS AT THIS TIME
--- NOTE | 2019-01-30 19:05 | NUR ---
GAVE BEDSIDE REPORT TO HEAD AND NECK SURGEON NURSE. PATIENT ENDORSED IN STABLE CONDITION
--- NOTE | 2019-01-30 19:20 | NUR ---
RECEIVED REPORT FROM DAY SHIFT NURSE FOR CONTINUITY OF CARE. PATIENT SITTING UP, WATCHING TV, IN STABLE CONDITION. BED IS IN LOW POSITION, SIDE RAILS ARE UP, AND CALL LIGHT WITHIN REACH. WILL CONTINUE TO MONITOR PATIENT.
--- NOTE | 2019-01-30 20:00 | NUR ---
VITAL SIGNS TAKEN: BP 152/62, P 82, T 99.4, RR 17, O2 9% RA.
--- NOTE | 2019-01-30 20:41 | NUR ---
RECEIVED PATIENT ON ROOM AIR, PULSE OX 98%. PATIENT DENIES SOB. NO RESPIRATORY DISTRESS NOTED AT THIS TIME. WILL CONTINUE TO MONITOR.
[2019-01-30] MEDS: SIMVASTATIN 20 MG TAB PO SCH (20:52)
[2019-01-30] MEDS: QUEtiapine FUMARATE 25 MG TAB PO SCH (20:52)
--- NOTE | 2019-01-30 20:52 | NUR ---
PATIENT LYING IN BED C/O OF COUGH. ADMINISTERED MEDICATIONS ORDERED. TOLERATED MEDS WELL. WILL CONTINUE TO MONITOR PATIENT.
--- NOTE | 2019-01-30 23:00 | NUR ---
PATIENT LYING IN BED APPEARS TO BE SLEEPING. NO SIGNS OF DISTRESS AT THIS TIME. WILL CONTINUE TO MONITOR PATIENT.
--- NOTE | 2019-01-31 | NUR ---
SLEEPING COMFORTABLY IN BED.
--- NOTE | 2019-01-31 00:30 | NUR ---
MADE ROUNDS. PT ASLEEP. NO S/S OF ANY DISCOMFORT NOTED. WILL CONTINUE TO MONITOR.
[2019-01-31 02:00] VITALS: BP 169/64
--- NOTE | 2019-01-31 02:00 | NUR ---
MADE ROUNDS. PATIENT LYING IN BED AWAKE. OFFERED AND ENCOURAGED TO BE CHANGED, REFUSED MULTIPLE TIMES. WILL CONTINUE TO MONITOR PATIENT.
[2019-01-31] MEDS: HYDROcodone/APAP 5/325 MG 1 TAB TAB PO PRN (03:56)
--- NOTE | 2019-01-31 03:56 | NUR ---
PATIENT COMPLAINS OF HEADACHE AND BODY PAIN. ADMINISTERED PAIN MEDICATION ORDERED. WILL CONTINUE TO MONITOR PATIENT.
--- NOTE | 2019-01-31 03:56 | NUR ---
PATIENT AWAKE LYING IN BED, CORRECTION OFFICER REFORMATORY AT BEDSIDE GIVING BEDSIDE CARE. WILL CONTINUE TO MONITOR PATIENT.
--- NOTE | 2019-01-31 04:50 | NUR ---
PT ASLEEP. NO S/S OF ANY DISCOMFORT NOTED.
[2019-01-31 07:16] LABS: BASOPHILS % (AUTO) 0.3 % (0.0-2.0); EOSINOPHILS # (AUTO) 0.7 K/uL (0-0.4); EOSINOPHILS % (AUTO) 9.2 % (0.0-4.0); HEMATOCRIT 29.4 % (36-48); HEMOGLOBIN 9.9 g/dL (12.0-16.0); LYMPHOCYTES # (AUTO) 1.3 K/uL (2.5-16.5); LYMPHOCYTES % (AUTO) 17.8 % (20.5-51.1); MEAN CORPUSCULAR HEMOGLOBIN 31 pg (27-31); MEAN CORPUSCULAR HGB CONC 34 g/dL (33-37); MEAN CORPUSCULAR VOLUME 91.7 fL (80-94); MONOCYTES # (AUTO) 0.8 K/uL (0.8-1.0); MONOCYTES % (AUTO) 10.9 % (1.7-9.3); NEUTROPHILS # (AUTO) 4.5 K/uL (1.8-7.7); NEUTROPHILS % (AUTO) 61.8 % (42.2-75.2); PLATELET COUNT (AUTO) 202 K/uL (140-450); RED BLOOD CELL COUNT(AUTO) 3.21 MIL/uL (4.20-5.40); RED CELL DISTRIBUTION WIDTH 14.3 % (11.6-13.7); WHITE BLOOD COUNT (AUTO) 7.2 K/uL (4.8-10.8)
--- NOTE | 2019-01-31 07:20 | NUR ---
ENDORSED PT IN STABLE CONDITION TO AM NURSE.
--- NOTE | 2019-01-31 07:21 | NUR ---
RECEIVED BEDSIDE REPORT FROM MANJINDER/JONNATHAN WANG. PATIENT ON MED SURGE AND STANDARD PRECAUTIONS IN PLACE. PATIENT AMBULATES WITH ASSIST AND ON ROOM AIR, NO DISTRESS NOTED. SKIN WITH SCABS AND DISCOLORATION. IV ON L FA 22G INFUSING 1/2 NS AT 80, IV ASYMPTOMATIC PATENT AND INTACT. FALL RISK PROTOCOL IN PLACE. BED IN LOW POSITION, CALL LIGHT WITHIN REACH, SIDE RAILS X2 UP
[2019-01-31 07:52] LABS: ANION GAP 14.1 (8-16); CARBON DIOXIDE 23.3 mmol/L (21-32); CHLORIDE 111 mmol/L (98-107); GLUCOSE 88 mg/dL (74-106); POTASSIUM 4.4 mmol/L (3.5-5.1); SODIUM SERUM 144 mmol/L (136-145); UREA NITROGEN, BLOOD 49 mg/dL (7-18)
[2019-01-31 07:56] LABS: MAGNESIUM 2.1 mg/dL (1.8-2.4); PHOSPHORUS 4.2 mg/dL (2.5-4.9)
[2019-01-31 08:00] VITALS: BP 140/60
[2019-01-31] MEDS: NACL 0.45% 1,000 ML IV SCH ×3 (09:35→23:54)
[2019-01-31] MEDS: CALCITRIOL 0.25 MCG CAPLF PO SCH (09:53)
[2019-01-31] MEDS: FERROUS SULFATE 325 MG TABEC PO SCH (09:54)
[2019-01-31] MEDS: METOPROLOL 25 MG TAB PO SCH ×2 (09:54→22:02)
[2019-01-31] MEDS: amLODIPine 5 MG TAB PO SCH (09:54)
--- NOTE | 2019-01-31 09:58 | NUR ---
ADMINISTERED SCHEDULED MEDS. PATIENT TOLERATED WELL
--- NOTE | 2019-01-31 11:39 | NUR ---
FAXED ALL PAPER WORK FOR [facility]
--- NOTE | 2019-01-31 12:23 | NUR ---
PATIENT USED BEDSIDE COMMODE, HAD BM
--- NOTE | 2019-01-31 14:37 | NUR ---
PATIENT SITTING IN BED, WATCHING TV
--- NOTE | 2019-01-31 15:32 | NUR ---
I RECEIVED A CALL FROM JONH STONE [facility] , THAT GAVE AUTH# FOR SKILLED FOR 1 [facility]AK [facility] AND APPROVED FOR CATE LETTER. CALLED [facility] SPOKE WITH SARABJIT THE [employer]ER[employer] AGENT STATED LONG SHE HAS THE CATE LETTER SHE WILL ACCEPT THE PATIENT. CALLED DR BECK AND NOTIFIED THAT HE WILL BE THE ACCEPTING .
[2019-01-31 16:00] VITALS: BP 149/70
--- NOTE | 2019-01-31 16:06 | NUR ---
PATIENT SITTING IN BED WATCHING TV, ON ROOM AIR, NO DISTRESS NOTED
--- NOTE | 2019-01-31 19:10 | NUR ---
BEDSIDE REPORT GIVEN TO MEGGAN BAUTISTA. PATIENT ENDORSED IN STABLE CONDITION
--- NOTE | 2019-01-31 19:11 | NUR ---
RECD. RESTING IN BED, AWAKE, A/OX3, WITH OCCASIONAL FORGETFULNESS. RESPIRATION EVEN AND UNLABORED. IV OF 1/2 NS AT 80ML/HR INFUSING LEFT FOREARM G22. SAFETY MEASURES ENFORCED. BED ON ALARM, CALL LIGHT IN REACH. PLAN OF CARE FOR THE SHIFT DISCUSSED. VERBALIZED UNDERSTANDING. DENIES PAIN 0/10.
--- NOTE | 2019-01-31 19:12 | NUR ---
Patient's Plan of Care was discussed and reviewed with HYDRODYNAMICS TEACHER: MICHELE ZAVALA. WILL CONTINUE TO MONITOR.
--- NOTE | 2019-01-31 20:30 | NUR ---
WANTS SOMETHING FOR COUGH BUT DOES NOT WANT LIQUID COUGH MEDICATION, WANTS CANDY. ASSURED WILL CALL
--- NOTE | 2019-01-31 21:00 | NUR ---
VERY LOUD, WANTS HER DOOR CLOSED, EXPLAINED THAT FOR SAFETY IT NEEDS TO BE OPENED, GETS MAD SCREAM.
--- NOTE | 2019-01-31 22:00 | NUR ---
JUICE GIVEN AND ENGAGED IN A PLEASANT CONVERSATION. BECOMES COOPERATIVE. KEEPS ON TELLING THAT SHE WANTS TO SPEAK WITH THE DOCTOR. ASSURED THAT IT WILL BE ENDORSED TOMORROW TO AM NURSE.
[2019-01-31] MEDS: SIMVASTATIN 20 MG TAB PO SCH (22:02)
[2019-01-31] MEDS: QUEtiapine FUMARATE 25 MG TAB PO SCH (22:03)
--- NOTE | 2019-01-31 23:00 | NUR ---
SLEEPING COMFORTABLY IN BED.
[2019-02-01] VITALS: BP 140/62
--- NOTE | 2019-02-01 01:30 | NUR ---
AWAKE, SITTING IN BED. ADVISED TO GO BACK TO SLEEP.
--- NOTE | 2019-02-01 02:20 | NUR ---
SLEEPING COMFORTABLY IN BED.
--- NOTE | 2019-02-01 04:00 | NUR ---
CHANGED BEDDINGS AND PT. GOWN. IV INFILTRATED. REFUSED NEW INV INSERTION, STATED "I'M GOING HOME TODAY". EXPLAINED THAT THERE'S NO ORDER YET FOR HER TO GO HOME. GOT MORE UPSET AND VOICE GET LOUDER. EXPLAINED ALL PATIENTS SHOULD HAVE A LINE IN CASE OF EMERGENCY, STILL REFUSED IV INSERTION. CN AWARE.
--- NOTE | 2019-02-01 04:30 | NUR ---
SLEEPING COMFORTABLY IN BED.
--- NOTE | 2019-02-01 07:15 | NUR ---
ENDORSED TO AM SHIFT NURSE FOR CONTINUITY OF CARE.
--- NOTE | 2019-02-01 07:16 | NUR ---
RECEIVED BEDSIDE REPORT FROM MICHELE. PATIENT ON MED SURGE AND STANDARD PRECAUTIONS IN PLACE. PATIENT AMBULATES WITH ASSIST AND SKIN WITH GENERALIZED SCABS AND DISCOLORATION, ON ROOM AIR, NO DISTRESS NOTED. FALL RISK PROTOCOL IN PLACE WITH BEDSIDE COMMODE. NO IV IN PLACE. NURSE MICHELE STATED PATIENT REFUSED INSERTION OF NEW IV. BED IN LOW POSITION, CALL LIGHT WITHIN REACH, SIDE RAILS X2 UP
[2019-02-01 08:00] VITALS: BP 174/64
--- NOTE | 2019-02-01 08:37 | NUR ---
CALLED JONH STONE [facility] [phone],LEFT A MESSAGE FOR CATE LETTER. IF CATE LETTER IS AVAILABLE PT IS GOING TO [facility] FOR SKILLED FOR ONE WEEK AND USP. SECOND PLAN IS WITH [facility] [phone] AGREED TO TAKE A PATIENT WITH 900$ /MONTH
--- NOTE | 2019-02-01 09:12 | NUR ---
SPOKE JONH [phone] STATED SHE IS WAITING THE CATE LETTER TO BE SIGNED BY HIDE CURER
[2019-02-01] MEDS: FERROUS SULFATE 325 MG TABEC PO SCH (09:37)
[2019-02-01] MEDS: METOPROLOL 25 MG TAB PO SCH (09:37)
[2019-02-01] MEDS: amLODIPine 5 MG TAB PO SCH (09:37)
[2019-02-01] MEDS: ALLOPURINOL 100 MG TAB PO SCH (09:37)
[2019-02-01] MEDS: CALCITRIOL 0.25 MCG CAPLF PO SCH (09:38)
--- NOTE | 2019-02-01 09:44 | NUR ---
ADMINISTERED SCHEDULED MEDS. PATIENT TOLERATED WELL
--- NOTE | 2019-02-01 10:00 | NUR ---
P.T. NOTES THIS P.T. CAME AND INTRODUCED MYSELF AND ASKED HOW TO PRONOUNCE PATIENT'S LAST NAME PROPERLY. PATIENT THEN GOT UPSET AND KEPT ASKING "HOW DO YOU PRONOUNCE [id number]?" THIS P.T. WOULD ANSWER AND FURTHER EXPLAIN THAT IS WHY I ASKED HER TO PROPERLY PRONOUNCE IT. PATIENT WENT ON FURTHER AND SCREAMED "HAVEN'T YOU GONE TO SCHOOL?!? 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 RN CAME IN AND SPOKE TO PATIENT. THIS P.T. SAID "WE GOT OFF TO A WRONG START I WILL JUST COME BACK LATER TO START OVER." TO WHICH PATIENT SCREAMED "NO!!! DON'T COME BACK TODAY NEVER!!" THIS P.T. SPOKE WITH RN AND AWARE OF INCIDENT AND UNABLE TO PARTICIPATE WITH P.T. TODAY BUT REPORTED OF PRESENTATION YESTERDAY OF AMBULATION FOR 200FT WITH [facility].
[2019-02-01] MEDS: NACL 0.45% 1,000 ML IV SCH (10:35)
--- NOTE | 2019-02-01 11:15 | NUR ---
CALLED JONH REGARDING THE CATE LETTER ,SHE STATED THE ADMIN STILL WORKING ON IT . THE AUTH # FOR [facility] [id number] TRANSPORT WILL BE WITH [facility] AND CAN USE THE SAME AUTH #
--- NOTE | 2019-02-01 12:11 | NUR ---
PATIENT LAYING IN BED, ON ROOM AIR, NO DISTRESS NOTED
--- NOTE | 2019-02-01 13:13 | NUR ---
ARRANGED TRANSPORTATION WITH [facility] SPOKE WITH ANDRAE AND GAVE AUTH [id number] AND PLACE IT WILL CALL
--- NOTE | 2019-02-01 14:20 | NUR ---
DR. QUILES AT BEDSIDE SPEAKING TO PATIENT
--- NOTE | 2019-02-01 15:12 | NUR ---
I RECEIVED A CALL FROM SARABJIT FROM [facility] THAT SHE RECEIVED A CATE LETTER AND PT IS ACCEPTED TO [facility] CAN GO TO ROOM 6A UNDER THE CARE OF DR BECK , DIRECTOR OF AUDIOLOGY TIME WILL BE BETWEEN 1800 - 1900 WITH [facility]. NOTIFIED FRANCES DE SANTIAGO
--- NOTE | 2019-02-01 15:43 | NUR ---
EDGARD called [facility] Social Service Practitioner, Laura Hsu. SW left voicemail stating that patient will be discharged and going to [facility] [phone]. EDGARD provided contact information to [facility] and call back number if she has any further questions. EDGARD/BERTHA will follow up as needed.
--- NOTE | 2019-02-01 15:44 | NUR ---
SPOKE TO TERRY FROM [facility] AND GAVE HER REPORT ON PATIENT. SHE IS AWARE PATIENT IS UNDER CARE OF DR. BECK GOING TO ROOM 6A, PICKUP TIME [id number] WITH [facility]. ANSWERED ALL QUESTIONS AND CONCERNS.
[2019-02-01 16:00] VITALS: BP 171/94
[2019-02-01] MEDS ORDERED: FURO-572 PO (16:33)
--- NOTE | 2019-02-01 16:49 | NUR ---
PATIENT SPEAKING ON PHONE TO HER BROTHER
--- NOTE | 2019-02-01 18:30 | NUR ---
DISCHARGE INSTRUCTIONS PROVIDED TO PATIENT. EDUCATED TO RETURN TO NEAREST ER IF SYMPTOMS WORSEN. MEDICATION PRESCRIPTION GIVEN TO PATIENT. SKIN INTACT. PNA AND FLU VACCINES RECEIVED 2019, NOT GIVEN AT DISCHARGE. ALL BELONGINGS SENT HOME WITH PATIENT. SECURITY HAD BACKPACK OF PATIENT, WAS GIVEN TO PATIENT WHEN WHEELED OUTSIDE BY [facility] SINCE THERE WAS RAT POOP IN HER BELONGINGS. PATIENT GIVEN HER WALLET AND CREDIT CARDS AND FOOD FROM HOSPITAL. DISCHARGE PACKET WITH PATIENT. NO IV IN PLACE ON PATIENT. WRIST BANDS REMOVED. ANSWERED ALL QUESTIONS AND CONCERNS. [facility] ESCORTED OUT VIA WHEELCHAIR, GOING TO [facility] UNDER DR. BECK ROOM 6A.
--- NOTE | 2019-02-02 10:28 | NUR ---
MS GUS MELY CALLED TO FIND OUT WHERE HER APARTMENT ARMAS AND ADDRESS BOOK ARE, SPOKE WITH SECURITY, ALL PERSONAL BELONGINGS WERE TAKEN WITH PATIENT WHEN TRANSFERRED TO SNF, NO ADDRESS BOOK OR ARMAS TURNED IN LOST/FOUND. WILL CALL GUS ([phone]) TO LET HER KNOW.
== END 2019-02-01 18:30 | DRG 682 ==
LOC: MED 15:26 → MTU 18:40
PROVIDERS: ADMIT Internal Medicine Pulmonary Disease; ATTEND Internal Medicine Pulmonary Disease
DX: N17.9 Acute kidney failure, unspecified (principal); G93.41 Metabolic encephalopathy; N39.0 Urinary tract infection, site not specified; E87.0 Hyperosmolality and hypernatremia; F31.9 Bipolar disorder, unspecified; I12.9 Hypertensive chronic kidney disease with stage 1 through stage 4 chronic kidney disease, or unspecified chronic kidney disease; N18.9 Chronic kidney disease, unspecified; F29 Unspecified psychosis not due to a substance or known physiological condition; E86.0 Dehydration; Z79.899 Other long term (current) drug therapy; Z88.2 Allergy status to sulfonamides
CPT/HCPCS: 36415; 70450; 80048; 80053; 80305; 81001; 83605; 83735; 84100; 84443; 85025; 87040; 87081; 87086; 87186; 93005; 94640; 96361; 96365; 97110; 97116; 97530; 99285; G0480; G0482; J0696; J1200; J2060; J2270; J7030; J7060; J7613

== ENCOUNTER 2019-04-07 19:59 | Inpatient (IN) | payer BC, MEDICAID ==
[~2019-04-07] VITALS: Ht 152.4 cm; Wt 54.4 kg
[~2019-04-07 19:59] MED LIST changes: +ALLO100T21 PO; -ATEN25TA7 PO; +ATI.5 PO; +CALC3OIN TP; +CIPR250T6 PO; +FERR325E14 PO; +FURO-572 PO; +METO25TE2 PO; +SIMV20TA6 PO
[2019-04-07 20:02] VITALS: BP 149/99
--- NOTE | 2019-04-07 20:02 | NUR ---
79 Y/O FEMALE [facility]. PER REPORT FROM EMT, PT HAD SUICIDE ATTEMPT AND TOOK 6 TABS OF HER XANAX, 0.25MG ON TOP OF HER BP MEDS. PER HOLD, PT ENDORSED WANTING TO HURT "OTHER PEOPLE NEARBY" AND HAD A PLAN TO "STAB THEM IN THE PUSSY." PT PRESENTS GUARDED AND WITHDRAWN; STATED, "I WASN'T TRYING TO KILL MYSELF, BUT THAT NURSE I HAD WAS A BITCH." PT HAS HX FOR BIPOLAR, ANXIETY AND HTN. PT STATES BEING NONMED COMPLIANT TO PSYCH MEDS. PT VSS. ERMD AWARE. STAFF MONITORING PT 1:1.
--- NOTE | 2019-04-07 20:03 | NUR ---
PT BIBA BLS TO ER BED 6
--- NOTE | 2019-04-07 20:10 | NUR ---
ALYSSIA VUONG FROM [facility] W/ C/O THREATENING TO HURT HERSELF BY TAKING ALL HER MEDICATIONS AT ONCE, AND VERBALLY AGGRESSIVE TOWARDS STAFF AND OTHER RESIDENTS. PER [facility] STAFF 6 PILLS MISSING OF 0.25MG XANAX. PT ANSWERING QUESTIONS APPROPRIATELY HX; HTN, BIPOLAR
--- NOTE | 2019-04-07 20:15 | NUR ---
RECEIVED CRITICAL LAB REPORT FOR BUN 67, CREATININE 3.6. MADE ERMD AWARE, RECEIVED ORDER FOR 1L NS. PT VSS. WILL CONTINUE TO MONITOR.
[2019-04-07 20:26] LABS: BASOPHILS % (AUTO) 0.5 % (0.0-2.0); EOSINOPHILS # (AUTO) 0.4 K/uL (0-0.4); EOSINOPHILS % (AUTO) 4.1 % (0.0-4.0); HEMATOCRIT 37.5 % (36-48); HEMOGLOBIN 12.3 g/dL (12.0-16.0); LYMPHOCYTES # (AUTO) 1.9 K/uL (2.5-16.5); LYMPHOCYTES % (AUTO) 21.1 % (20.5-51.1); MEAN CORPUSCULAR HEMOGLOBIN 30 pg (27-31); MEAN CORPUSCULAR HGB CONC 33 g/dL (33-37); MONOCYTES # (AUTO) 0.7 K/uL (0.8-1.0); MONOCYTES % (AUTO) 8.3 % (1.7-9.3); NEUTROPHILS # (AUTO) 5.9 K/uL (1.8-7.7); PLATELET COUNT (AUTO) 332 K/uL (140-450); RED BLOOD CELL COUNT(AUTO) 4.11 MIL/uL (4.20-5.40); RED CELL DISTRIBUTION WIDTH 14.2 % (11.6-13.7); WHITE BLOOD COUNT (AUTO) 8.9 K/uL (4.8-10.8)
[2019-04-07 20:45] LABS: ALBUMIN 3.3 g/dL (3.4-5.0); ANION GAP 14.8 (8-16); ASPARTATE AMINOTRANSFERASE 37 U/L (15-37); CARBON DIOXIDE 27.6 mmol/L (21-32); CHLORIDE 103 mmol/L (98-107); GLUCOSE 125 mg/dL (74-106); POTASSIUM 4.4 mmol/L (3.5-5.1); SODIUM SERUM 141 mmol/L (136-145); TOTAL BILIRUBIN 0.3 mg/dL (0.0-1.0)
--- NOTE | 2019-04-07 20:51 | NUR ---
CALLED POISON CONTROL AT AND TALKED TO GABRIEL AND WAS ADVISED TO DO CMP, CBC, SALICYTATE, ACETAMINOPHEN, DRUG SCREEN WHICH DR BAR HAD ALREADY ORDERED AND MONITOR FOR LOC.
[2019-04-07 20:53] LABS: ACETAMINOPHEN < 0.5 ug/ml (10-30); SALICYLATE < 2.8 mg/dL (2.8-20.0); UREA NITROGEN, BLOOD 67 mg/dL (7-18)
[2019-04-07 20:54] LABS: CREATININE 3.6 mg/dL (0.6-1.3)
[2019-04-07] MEDS ORDERED: NACL 0.9% 1,000 ML IV ONE (20:55)
[2019-04-07 21:22] LABS: APPEARANCE,URINE SL CLOUDY (CLEAR); BILIRUBIN,URINE NEGATIVE (NEGATIVE); BLOOD, URINE TRACE-I (NEGATIVE); COLOR,URINE YELLOW (YELLOW); LEUKOCYTE ESTERASE ,URINE 2+ (NEGATIVE); NITRITE, URINE POSITIVE (NEGATIVE); UGLUCOSE NEGATIVE (NEGATIVE)
[2019-04-07 21:28] LABS: BARBITURATE, URINE NEG. ng/ml (NEG <=200); BENZODIAZEPINE, URINE POS. ng/mL (NEG <=200); CANNABINOID, URINE NEG. ng/mL (NEG <=50); COCAINE, URINE NEG. ng/mL (NEG <=300); OPIATE, URINE NEG. ng/mL (NEG <=2000); PHENCYCLIDINE SCREEN,URINE NEG. ng/mL (NEG <=25)
[2019-04-07 21:29] LABS: RBC,URINE 0-5 /HPF (0-5); WBC,URINE TOO MANY TO COUNT /HPF (0-5)
--- NOTE | 2019-04-07 21:42 | NUR ---
Clark joseph in [facility] - 04/07/19 at 2153 by MEDAJGillian MARILEE ORDERED
[2019-04-07] MEDS ORDERED: cefTRIAXone 1,000 MG VIAL ONE (21:58)
[2019-04-07] MEDS ORDERED: ALPR0.252 PO (22:26)
[2019-04-07] MEDS ORDERED: OLAN2.5T1 PO (22:27)
[2019-04-07] MEDS ORDERED: HYDR-1098 PO (22:29)
--- NOTE | 2019-04-07 23:12 | NUR ---
DR. BAR BEDSIDE EVALUATING PT
[2019-04-07] MEDS ORDERED: MORPHINE SULFATE 4 MG/ML SYR IVP ONE (23:15)
--- NOTE | 2019-04-07 23:46 | NUR ---
PT AWAKE, LAYING ON BED. PT PRESENTS GUARDED, DENIES ANY SI. PT VSS. ERMD AWARE. WILL CONTINUE TO MONITOR.
[2019-04-08] VITALS: BP 144/65
[2019-04-08] MEDS ORDERED: diphenhydrAMINE 50 MG/ML VIAL IVP ONE (00:20)
--- NOTE | 2019-04-08 00:29 | NUR ---
PT C/O ITCHING, DR BAR MADE AWARE, ADMINISTERED BENADRYL IVP WITH EDUCATION, PT VERBALIZED UNDERSTANDING, TOLERATED MED WELL.
[2019-04-08 00:30] VITALS: BP 144/65
--- NOTE | 2019-04-08 00:35 | NUR ---
Patient will be admitted to care of NATE. Admited to M/S room 109B. Belongings list completed. Report to JONNATHAN BAUTISTA
--- NOTE | 2019-04-08 00:45 | NUR ---
Admitted from ER TO [facility] , with chief complaint of SUICIDAL IDEATION, PER 5150 DOCUMENTATION, PATIENT TOOK 6 TABLETS OF XANAX, TOTAL OF 0.25 MG. AND THREATENING OTHER PEOPLE. A/OX4, BUT AT TIMES ACTING WEIRD. 79 y/o ,Female, Cooperative. LUNGS CLEAR ON BILATERAL AUSCULTATION, ABDOMEN SOFT, ROUND, SEEMS DISTENDED WITH HYPOACTIVE BOWEL SOUNDS. HEAD TO TOE ASSESSMENT DONE WITH CHARGE NURSE COLT, SKIN INTACT. ABLE TO AMBULATE TO BR TO VOID BUT USES DIAPER AT NIGHT. USES WALKER AT H0ME. PLAN OF CARE FOR THE SHIFT DISCUSSED. VERBALIZED UNDERSTANDING. DENIES PAIN 0/10.oriented to call light, bed, phone,television, bathroom, smoking policy, visiting hours, procedures, ID bracelet on. Belongings list checked.
--- NOTE | 2019-04-08 00:46 | NUR ---
Patient's Plan of Care was discussed and reviewed with MEGGAN: MICHELE. PT ON 1:1 SITTER. WILL CONTINUE TO MONITOR.
--- NOTE | 2019-04-08 03:45 | NUR ---
AWAKE, AMBULATED TO BR TO VOID. BACK TO BED AFTER VOIDING.
--- NOTE | 2019-04-08 04:30 | NUR ---
AWAKE, SITTING ON BED. ENCOURAGED TO GO BACK TO SLEEP.
[2019-04-08] MEDS ORDERED: ACETAMINOPHEN 325 MG TAB ONE (05:17)
[2019-04-08] MEDS: NACL 0.9% 1,000 ML IV SCH ×2 (05:50→20:29)
--- NOTE | 2019-04-08 06:30 | NUR ---
STILL SLEEPING COMFORTABLY IN BED. CONDITION REMAIN STABLE.
--- NOTE | 2019-04-08 07:03 | NUR ---
RECEIVED BEDSIDE REPORT FROM COLUMNIST NURSE FOR CONTINUITY OF CARE. PATIENT IS AWAKE AND RESTING ON BED. PATIENT IS AAOX4, TO NAME, PLACE, TIME, AND DATE, ABLE TO COMMUNICATE APPROPRIATELY, BUT SHE SEEMS FORGETFUL. MOOD IS AVOIDANCE AND QUIET. RESPIRATION EVEN AND UNLABORED ON ROOM AIR. NO SIGNS OF DISTRESS NOTED. IV ON LFA 20G, CLEAN AND DRY, INFUSING PER MD ORDER. SKIN CLEAN AND INTACT. PATIENT IS ABLE TO AMBULATE WITH STANDBY ASSIST. SAFETY MEASURES IN PLACE. BED IN LOW POSITION AND 1:1 SITTER BY BEDSIDE.
[2019-04-08 08:00] VITALS: BP 144/74
--- NOTE | 2019-04-08 08:15 | NUR ---
PATIENT HAS BEEN SCREENED AND CATEGORIZED LOW NUTRITION RISK. PATIENT WILL BE SEEN WITHIN 7 DAYS OF ADMISSION. 04/14/[address]
--- NOTE | 2019-04-08 08:27 | NUR ---
DR BA IS ASSESSING AND TALKING TO PATIENT AT BEDSIDE. NO SIGNS OF DISTRESS NOTED. SAFETY MEASURES IN PLACE. BED IN LOW POSITION AND 1:1 SITTER BY BEDSIDE.
--- NOTE | 2019-04-08 09:40 | NUR ---
PATIENT IS RESTING ON BED QUIETLY AT THIS TIME. NO SIGNS OF DISTRESS NOTED. SAFETY MEASURES IN PLACE. BED IN LOW POSITION AND 1:1 SITTER BY BEDSIDE.
[2019-04-08] MEDS: ACETAMINOPHEN EXTRA STRENGTH 500 MG TAB PO PRN ×2 (11:00→18:23)
--- NOTE | 2019-04-08 11:00 | NUR ---
PATIENT COMPLAINED THAT SHE HAS 4/10 HEADACHE, ADMINISTERED PRN PAIN MED, PATIENT TOLERATED WELL. PATIENT AWAKE AND RESTING ON BED AT THIS TIME. IV CLEAN AND INTACT, INFUSING PER MD ORDER. NO SIGNS OF DISTRESS NOTED. SAFETY MEASURES IN PLACE. BED IN LOW POSITION AND 1:1 SITTER AT BEDSIDE.
--- NOTE | 2019-04-08 13:22 | NUR ---
PATIENT REFUSED IVF AND ATTEMPTED TO PULL OUT IV TUBING MULTIPLE TIMES. ASSESSED IV SITE, PATENT AND INTACT, STABLE IV WITH PAPER TAPE. EDUCATION PROVIDED TO PATIENT AND PATIENT SAID " I DON'T CARE. I AM STILL ALIVE WITHOUT ALL THIS FLUID." STOP IVF FOR NOW. PATIENT WENT BACK ON BED AND RESTING. NO SIGNS OF DISTRESS NOTED. SAFETY MEASURES IN PLACE. BED IN LOW POSITION AND 1:1 SITTER BY BEDSIDE.
--- NOTE | 2019-04-08 15:28 | NUR ---
PATIENT IS RESTING ON BED, AROUSABLE TO VOICE. EVEN AND UNLABORED CHEST RISES NOTED. FLACC 0. NO SIGNS OF DISTRESS NOTED. SAFETY MEASURES IN PLACE. BED IN LOW POSITION AND 1:1 SITTER AT BEDSIDE.
[2019-04-08 16:00] VITALS: BP 123/67
--- NOTE | 2019-04-08 17:17 | NUR ---
PATIENT IS RESTING ON BED, AROUSABLE TO VOICE EASILY. DENIED PAIN AND SUICIDAL IDEATION AT THIS TIME. NO SIGNS OF DISTRESS NOTED. PATIENT REFUSED IVF AND STATED " IF YOU PUT IT BACK ON, I WILL TEAR OFF ALL THOSE THINGS!" EDUCATION PROVIDED TO PATIENT, AND PATIENT INSISTED NOT WANTING IVF. RESPECTED PATIENT'S CHOICE. SAFETY MEASURES IN PLACE. BED IN LOW POSITION AND 1:1 SITTER AT BEDSIDE.
--- NOTE | 2019-04-08 18:23 | NUR ---
PATIENT COMPLAINED THAT SHE HAS 5/10 HEADACHE, PATIENT WAS CRYING AND IRRITABLE. PATIENT IS SITTING UP ON EDGE OF BED. ADMINISTERED PRN PAIN MED, PATIENT TOLERATED WELL. PATIENT REFUSED IVF. NO SIGNS OF DISTRESS NOTED. SAFETY MEASURES IN PLACE. BED IN LOW POSITION AND 1:1 SITTER AT BEDSIDE.
--- NOTE | 2019-04-08 19:20 | NUR ---
ENDORSED PATIENT AT BEDSIDE TO MARINE CARGO SPECIALIST NURSE FOR CONTINUITY OF CARE. PATIENT IS RESTING ON BED AT THIS TIME. NO SIGNS OF DISTRESS NOTED. PATIENT REFUSED IVF. BED IN LOW POSITION AND 1:1 SITTER BY BEDSIDE.
--- NOTE | 2019-04-08 19:20 | NUR ---
RECIEVED PT AAOX3 , NID , IV SITE INTACT BUT ACCORDING TO AM NURSE PT REFUSED TO RE CONNECT IT TO IV FLUID - WHEN STHE NOD TRIED TO RE CONNECTED THE IV FLUID THE PT KEPT TOOK IT OFF . PLAN OF CARE DISCUSSED BUT POOR UNDERSTANDING. ON SAFETY PRECAUTION - SUICIDE RISK - 1;1 SITTER , WILL CONTINUE TO MONITOR.
[2019-04-08] MEDS: QUEtiapine FUMARATE 25 MG TAB PO SCH (20:27)
--- NOTE | 2019-04-08 22:00 | NUR ---
MADE ROUNDS , SITTING ON THE BED - SANDWICH GIVEN - NO COMPLAIN AT THIS TIME.. WILL CONT. TO MONITOR ON SITTER
[2019-04-09] VITALS: BP 130/62
--- NOTE | 2019-04-09 01:20 | NUR ---
C/O HEADACHE - TYLENOL GIVEN ORDERED - OFFFERED FRESH ICE WATER , WILL CONT. TO MONITOR . ON SITTER
[2019-04-09] MEDS: ACETAMINOPHEN 325 MG TAB PO PRN ×3 (01:30→22:58)
--- NOTE | 2019-04-09 04:00 | NUR ---
MADE ROUNDS , NO COMPLAIN MADE AT THIS TIME. RESP. EVEN AND UNLABORED.
--- NOTE | 2019-04-09 07:10 | NUR ---
RECEIVED BEDSIDE REPORT FROM CAR AUDIO INSTALLER NURSE. PER CAR AUDIO INSTALLER NURSE PATIENT IS REFUSING A LOT OF THINGS, AT THIS TIME SHE IS REFUSING FLUIDS. IV ON L FA 20G, CLEAN, DRY AND INTACT. PATIENT IS AWAKE, ALERT AND ORIENTEDX3. AMBULATORY. CONTINENT. SKIN IS INTACT. BED IN LOW POSITION. WILL CONTINUE TO MONITOR THE PATIENT. SITTER AT BEDSIDE
[2019-04-09 08:00] VITALS: BP 182/68
[2019-04-09 08:57] LABS: BASOPHILS % (AUTO) 0.7 % (0.0-2.0); EOSINOPHILS # (AUTO) 0.5 K/uL (0-0.4); HEMATOCRIT 32.9 % (36-48); HEMOGLOBIN 10.8 g/dL (12.0-16.0); LYMPHOCYTES # (AUTO) 1.4 K/uL (2.5-16.5); LYMPHOCYTES % (AUTO) 28.6 % (20.5-51.1); MEAN CORPUSCULAR HEMOGLOBIN 30 pg (27-31); MEAN CORPUSCULAR HGB CONC 33 g/dL (33-37); MEAN CORPUSCULAR VOLUME 91.3 fL (80-94); MONOCYTES # (AUTO) 0.4 K/uL (0.8-1.0); MONOCYTES % (AUTO) 8.2 % (1.7-9.3); NEUTROPHILS # (AUTO) 2.6 K/uL (1.8-7.7); NEUTROPHILS % (AUTO) 52.5 % (42.2-75.2); PLATELET COUNT (AUTO) 268 K/uL (140-450); WHITE BLOOD COUNT (AUTO) 5.1 K/uL (4.8-10.8)
[2019-04-09] MEDS: QUEtiapine FUMARATE 25 MG TAB PO SCH ×2 (09:21→20:32)
--- NOTE | 2019-04-09 09:24 | NUR ---
ADMINISTERED MEDS AND PRN PAIN MED. PATIENT TOLERATED WELL. EDUCATED ON SIDE EFFECTS. WILL CONTINUE TO MONITOR. SITTER AT BEDSIDE
[2019-04-09 10:16] LABS: ANION GAP 12.6 (8-16); CARBON DIOXIDE 26.2 mmol/L (21-32); CHLORIDE 109 mmol/L (98-107); GLUCOSE 87 mg/dL (74-106); POTASSIUM 4.8 mmol/L (3.5-5.1); SODIUM SERUM 143 mmol/L (136-145)
[2019-04-09 10:19] LABS: CREATININE 3.3 mg/dL (0.6-1.3); UREA NITROGEN, BLOOD 64 mg/dL (7-18)
--- NOTE | 2019-04-09 11:00 | NUR ---
PATIENT IN NO DISTRESS. WILL CONTINUE TO MONITOR
[2019-04-09] MEDS: NACL 0.9% 1,000 ML IV SCH (11:53)
--- NOTE | 2019-04-09 12:57 | NUR ---
PATIENT IS SLEEPING. NO SIGNS OF DISTRESS. WILL CONTINUE TO MONITOR THE PATIENT. SITTER AT BEDSIDE
[2019-04-09] MEDS: ACETAMINOPHEN EXTRA STRENGTH 500 MG TAB PO PRN (14:00)
--- NOTE | 2019-04-09 14:32 | NUR ---
PATIENT RESTING IN BED. NO SIGNS OF DISTRESS. WILL CONTINUE TO MONITOR
--- NOTE | 2019-04-09 15:34 | NUR ---
PATIENT IS SLEEPING. NO SIGNS OF DISTRESS. WILL CONTINUE TO MONITOR
[2019-04-09 16:00] VITALS: BP 122/71
--- NOTE | 2019-04-09 17:00 | NUR ---
PATIENT SLEEPING. WILL CONTINUE TO MONITOR. SITTER AT BEDSIDE
--- NOTE | 2019-04-09 19:05 | NUR ---
GAVE BEDSIDE REPORT TO PULLING UNIT OPERATOR NURSE. PATIENT ENDORSED IN STABLE CONDITION.
--- NOTE | 2019-04-09 19:05 | NUR ---
RECIEVED PT AWAKE AND ALERT BUT POOR HISTORIAN , NID NO IVF BUT WITH IV [place] INTACT AND PATENT , POC DISCUSSED BUT POOR UNDERSTANDING ,ON 1:1 SITTER - 50/51-HOLD.
--- NOTE | 2019-04-10 | NUR ---
RESTING ON BED , EATING SANDWICH.
[2019-04-10 02:59] VITALS: BP 130/80
[2019-04-10] MEDS: NACL 0.9% 1,000 ML IV SCH (03:17)
--- NOTE | 2019-04-10 04:00 | NUR ---
SLEEPING , ON 1:1 SITTER
[2019-04-10] MEDS: ACETAMINOPHEN EXTRA STRENGTH 500 MG TAB PO PRN (05:00)
--- NOTE | 2019-04-10 05:00 | NUR ---
COMPLAINING OF VICK - MEDICATED ORDERED.
--- NOTE | 2019-04-10 07:22 | NUR ---
ENDORSED TO AM SHIFT NURSE FOR CONT. OF CARE
--- NOTE | 2019-04-10 07:23 | NUR ---
RECEIVED BEDSIDE REPORT FROM GIN OPERATOR NURSE. PATIENT IS SLEEPING. NO SIGNS OF DISTRESS ON RA. SKIN IS INTACT. IV ON L FA 20, PATIENT IS REFUSING FLUIDS. PATIENT IS AMBULATORY. CONTINENT. BED IN LOW POSITION. SITTER AT BEDSIDE. WILL CONTINUE TO MONITOR THE PATIENT.
[2019-04-10 07:51] LABS: BASOPHILS % (AUTO) 0.6 % (0.0-2.0); EOSINOPHILS # (AUTO) 0.5 K/uL (0-0.4); EOSINOPHILS % (AUTO) 9.9 % (0.0-4.0); HEMATOCRIT 31.5 % (36-48); HEMOGLOBIN 10.3 g/dL (12.0-16.0); LYMPHOCYTES # (AUTO) 1.6 K/uL (2.5-16.5); LYMPHOCYTES % (AUTO) 29.4 % (20.5-51.1); MEAN CORPUSCULAR HEMOGLOBIN 30 pg (27-31); MEAN CORPUSCULAR HGB CONC 33 g/dL (33-37); MEAN CORPUSCULAR VOLUME 91.6 fL (80-94); MONOCYTES # (AUTO) 0.4 K/uL (0.8-1.0); MONOCYTES % (AUTO) 8.1 % (1.7-9.3); NEUTROPHILS # (AUTO) 2.8 K/uL (1.8-7.7); PLATELET COUNT (AUTO) 237 K/uL (140-450); RED BLOOD CELL COUNT(AUTO) 3.44 MIL/uL (4.20-5.40); RED CELL DISTRIBUTION WIDTH 14.1 % (11.6-13.7); WHITE BLOOD COUNT (AUTO) 5.4 K/uL (4.8-10.8)
[2019-04-10 07:54] LABS: ALBUMIN 2.8 g/dL (3.4-5.0); ANION GAP 12.4 (8-16); ASPARTATE AMINOTRANSFERASE 16 U/L (15-37); CARBON DIOXIDE 27.1 mmol/L (21-32); CHLORIDE 107 mmol/L (98-107); CREATININE 3.2 mg/dL (0.6-1.3); GLUCOSE 105 mg/dL (74-106); POTASSIUM 4.5 mmol/L (3.5-5.1); SODIUM SERUM 142 mmol/L (136-145); TOTAL BILIRUBIN 0.2 mg/dL (0.0-1.0)
[2019-04-10 07:56] LABS: UREA NITROGEN, BLOOD 63 mg/dL (7-18)
[2019-04-10 08:00] VITALS: BP 136/70
[2019-04-10] MEDS: QUEtiapine FUMARATE 25 MG TAB PO SCH ×2 (08:33→20:03)
--- NOTE | 2019-04-10 08:35 | NUR ---
ADMINISTERED MEDS. PATIENT TOLERATED WELL. EDUCATED ON SIDE EFFECTS. WILL CONTINUE TO MONITOR. SITTER AT BEDSIDE
--- NOTE | 2019-04-10 09:35 | NUR ---
PATIENT NO LONGER ON 5150 HOLD PER GUZMAN
--- NOTE | 2019-04-10 10:00 | NUR ---
PATIENT IS SLEEPING. WILL CONTINUE TO MONITOR
--- NOTE | 2019-04-10 11:41 | NUR ---
Paint Roller Cover Machine Setter Note: Per Aron from [facility] [phone], they do not have referral for patient. I faxed inquiry.
[2019-04-10] MEDS: DEXT 5% / NACL 0.45% 1,000 ML IV SCH ×2 (11:46→23:52)
--- NOTE | 2019-04-10 11:52 | NUR ---
ADMINISTERED IVF. PATIENT TOLERATED WELL. SHE AGREED FOR IVF BECAUSE I EXPLAINED THE RISKS OF KIDNEY FAILURE.
--- NOTE | 2019-04-10 11:59 | NUR ---
Cargo Service Agent Note: Per Aron from [facility] [phone], he received inquiry and will begin to contact inpatient [facility].
--- NOTE | 2019-04-10 12:17 | NUR ---
CONTACTED [facility] AT [phone], SPOKE TO CLAUDE MURILLO RN REGARDING INQUIRY FOR IN PATIENT [facility]YSSA PSYCH. HE PROVIDED ME WITH FAX NUMBER [phone], TO SEND REFERRALS. FAXED ALL CLINICALS.
--- NOTE | 2019-04-10 12:54 | NUR ---
PATIENT SITTING AT SIDE OF BED. NO SIGNS OF DISTRESS. WILL CONTINUE TO MONITOR
--- NOTE | 2019-04-10 13:44 | NUR ---
CONTACTED [facility], ABLE TO SPEAK TO CLAUDE. CONFIRMED THAT THEY RECEIVED THE CLINICAL FAXED EARLIER. HE STATED THAT THEY MAY HAVE POSSIBLE DISCHARGES TODAY, AND WILL INFORM SOON FEMALE BED IS AVAILABLE.
--- NOTE | 2019-04-10 13:54 | NUR ---
CONTACTED [facility] AT [phone], ABLE TO SPEAK TO ART. HE STATED THAT THEY HAVE SENT OUT PACKETS TO [facility].
--- NOTE | 2019-04-10 14:00 | NUR ---
PATIENT LAYING IN BED. NO SIGNS OF DISTRESS. WILL CONTINUE TO MONITOR THE PATIENT.
[2019-04-10 16:00] VITALS: BP 149/77
--- NOTE | 2019-04-10 16:34 | NUR ---
CALLED [facility] SPOKE WITH AGUSTIN ACCEPTED PT CAN BE TRANSFERRED WHEN MEDICALLY CLEAR. SPOKE WITH DR HORNER IV ABX CHANGED TO PO BUT PT NEEDS IVF FOR HER KIDNEY FUNCTION CM WILL F/U TOMORROW
--- NOTE | 2019-04-10 16:57 | NUR ---
PATIENT IS SLEEPING. NO SIGNS OF DISTRESS. WILL CONTINUE TO MONITOR
--- NOTE | 2019-04-10 17:56 | NUR ---
PATIENT AMBULATED TO THE RESTROOM AND BACK. NO SIGNS OF DISTRESS. WILL CONTINUE TO MONITOR THE PATIENT
--- NOTE | 2019-04-10 19:05 | NUR ---
GAVE BEDSIDE REPORT TO ARTIFICIAL LIMB FITTER NURSE. PATIENT ENDORSED IN STABLE CONDITION
--- NOTE | 2019-04-10 19:06 | NUR ---
REPORT RECEIVED FROM AM NURSE AT BEDSIDE. PT IN STABLE CONDITION. AAOX4. INTRODUCED SELF TO PT. BOARD UPDATED. NO COMPLAINTS OF PAIN. NO SOB. AFEBRILE. PT IS A FALL RISK. IV SITE L FA 22G RUNNING D5 1/2NS@80ML/HR PATENT AND INTACT. SKIN WARM, DRY, AND INTACT WITH NO OPEN WOUNDS. BED LOCKED IN LOW POSITION. CALL GRIFFIN WITHIN REACH. SAFETY PRECAUTION IN PLACE. ALL NEEDS MET AT THIS TIME.
[2019-04-10] MEDS: CEPHALEXIN 500 MG CAP PO SCH (20:03)
--- NOTE | 2019-04-10 20:03 | NUR ---
KEFLEX AND SEROQUEL GIVEN PO. PT TOLERATED WELL.
--- NOTE | 2019-04-10 22:00 | NUR ---
PT SLEEPING COMFORTABLY IN BED. NO S/S OF DISTRESS NOTED. WILL CONTINUE TO MONITOR.
--- NOTE | 2019-04-10 23:45 | NUR ---
PT AWAKE AND ALERT IN BED. NO S/S OF DISTRESS NOTED. NO COMPLAINTS OF PAIN. NO SOB. AFEBRILE. WILL CONTINUE TO MONITOR.
[2019-04-11] VITALS: BP 157/71
--- NOTE | 2019-04-11 01:30 | NUR ---
PT SLEEPING COMFORTABLY IN BED BUT AROUSABLE. NO S/S OF DISTRESS NOTED. NO COMPLAINTS OF PAIN. NO SOB. AFEBRILE. WILL CONTINUE TO MONITOR.
--- NOTE | 2019-04-11 03:05 | NUR ---
PT SLEEPING COMFORTABLY BUT AROUSABLE. NO S/S OF DISTRESS NOTED. WILL CONTINUE TO MONITOR.
--- NOTE | 2019-04-11 04:10 | NUR ---
PT SLEEPING COMFORTABLY BUT AROUSABLE. NO S/S OF DISTRESS NOTED. RESPIRATIONS EVEN, UNLABORED, AND WNL. WILL CONTINUE TO MONITOR.
--- NOTE | 2019-04-11 06:00 | NUR ---
PT SLEEPING COMFORTABLY IN BED. NO S/S OF DISTRESS NOTED. NO COMPLAINTS OF PAIN. NO SOB. AFEBRILE. WILL CONTINUE TO MONITOR.
[2019-04-11 07:41] LABS: BASOPHILS % (AUTO) 0.4 % (0.0-2.0); EOSINOPHILS # (AUTO) 0.5 K/uL (0-0.4); EOSINOPHILS % (AUTO) 9.1 % (0.0-4.0); HEMATOCRIT 31.2 % (36-48); HEMOGLOBIN 10.3 g/dL (12.0-16.0); LYMPHOCYTES # (AUTO) 1.7 K/uL (2.5-16.5); LYMPHOCYTES % (AUTO) 28.5 % (20.5-51.1); MEAN CORPUSCULAR HEMOGLOBIN 30 pg (27-31); MEAN CORPUSCULAR HGB CONC 33 g/dL (33-37); MEAN CORPUSCULAR VOLUME 91.1 fL (80-94); MONOCYTES # (AUTO) 0.5 K/uL (0.8-1.0); MONOCYTES % (AUTO) 8.6 % (1.7-9.3); NEUTROPHILS # (AUTO) 3.2 K/uL (1.8-7.7); NEUTROPHILS % (AUTO) 53.4 % (42.2-75.2); PLATELET COUNT (AUTO) 237 K/uL (140-450); RED BLOOD CELL COUNT(AUTO) 3.42 MIL/uL (4.20-5.40); RED CELL DISTRIBUTION WIDTH 13.8 % (11.6-13.7)
[2019-04-11 07:47] LABS: ANION GAP 13.1 (8-16); CHLORIDE 108 mmol/L (98-107); CREATININE 2.8 mg/dL (0.6-1.3); GLUCOSE 96 mg/dL (74-106); POTASSIUM 4.1 mmol/L (3.5-5.1); SODIUM SERUM 142 mmol/L (136-145); UREA NITROGEN, BLOOD 54 mg/dL (7-18)
[2019-04-11] MEDS: QUEtiapine FUMARATE 25 MG TAB PO SCH ×2 (08:29→20:44)
[2019-04-11] MEDS: ACETAMINOPHEN 325 MG TAB PO PRN (08:29)
[2019-04-11] MEDS: CEPHALEXIN 500 MG CAP PO SCH ×2 (08:30→20:44)
--- NOTE | 2019-04-11 08:32 | NUR ---
RECEIVED BED SIDE REPORT FROM BOX TOE FLANGER STITCHDOWNS RN. PT KNOWS NAME, DATE, PLACE. ON RA IN NO RESP DISTRESS. PT REQUESTING TO HAVE BELONGINGS TO CALL HER BROTHER. CALLED SECURITY. SECURITY BROUGHT BELONGINGS. 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 RECHECKED BP 30 MIN LATER AND BP 169/75. PT STATES BP IS HIGH D/T VICK. PT STATES SHE HAS A 9/10 VICK. GAVE TYLENOL PRN. WILL REASSESS PAIN.
[2019-04-11] MEDS ORDERED: cloNIDine 0.1 MG TAB PO PRN (08:45)
--- NOTE | 2019-04-11 08:47 | NUR ---
SPOKE TO ABOUT ELEVATED BP. ORDERED CLONIDINE 0.126MG FOR SBP >160. PT COMPLAINS OF VICK THAT HAS BEEN THERE FOR 24 HOURS. PT DENIES LIGHTHEADEDNESS. WILL INPUT ORDERS.
[2019-04-11 09:17] VITALS: BP 174/85
[2019-04-11] MEDS: cloNIDine 0.1 MG TAB PO PRN ×2 (09:38→11:51)
--- NOTE | 2019-04-11 09:38 | NUR ---
GAVE CLONIDINE PRN PER MD ORDER. PHYSICAL THERAPY HERE FOR PT. PT APPEARS IN NO DISTRESS.
[2019-04-11] MEDS: DEXT 5% / NACL 0.45% 1,000 ML IV SCH (11:55)
--- NOTE | 2019-04-11 11:55 | NUR ---
BP 136/59, HR 67 AFTER GIVING CLONIDINE. PT STABLE. HUNG D5 1/2 NS RUNNING AT 80CC/HR. WILL CONTINUE TO MONITOR.
--- NOTE | 2019-04-11 13:51 | NUR ---
PER IVONE STONE OF [facility], THEY ARE NOT AUTHORIZING THE IN PATIENT PSYCHE. PATIENT NEEDS TO BE REEVALUATED BY PSYCHIATRIST. CHARGE NURSE MADE AWARE.
--- NOTE | 2019-04-11 15:55 | NUR ---
PER [facility] OF [facility], THEY ARE NOT ABLE TO ACCEPT THE PATIENT BACK BECAUSE OF THE BEHAVIOR. BERTHA WISEMAN MADE AWARE. SHE STATED THAT WE WILL JUST WAIT FOR THE PSYCHE REEVALUATION AND WILL GO FROM THERE.
[2019-04-11 16:00] VITALS: BP 138/59
--- NOTE | 2019-04-11 16:27 | NUR ---
PER CHARGE NURSE PATIENT CLEARED BY [facility] AND HAVE BEEN RELEASED FROM [facility] AND CAN GO BACK TO THE MEDICAL [facility]ENTER. CONTACTED MARY STOVER AT [facility] AT [phone], SHE STATED THAT SHE NEEDED UNTIL TOMORROW TO DECIDE BECAUSE SHE STILL HAVE TO DISCUSS IT. IVONE STONE MADE AWARE. SHE STATED THAT HOPEFULLY THERE WILL BE NO HINDRANCE TOMORROW AND [facility] WILL TAKE THE PATIENT BACK. WILL FOLLOW UP TOMORROW.
[2019-04-11] MEDS: ACETAMINOPHEN EXTRA STRENGTH 500 MG TAB PO PRN (17:13)
--- NOTE | 2019-04-11 17:14 | NUR ---
BP 138/59, HR 61. PT STABLE AT THIS TIME. PT COMPLAINED OF 5/10 VICK AND REQUESTED TYLENOL EXTRA STRENGTH BECAUSE THE LAST TYLENOL DID NOT WORK. GAVE TYLENOL EXTRA STRENGTH PER MD ORDER.
--- NOTE | 2019-04-11 19:12 | NUR ---
GAVE BED SIDE REPORT FROM PUBLIC RELATIONS ASSISTANT RN. PT LACEY.
--- NOTE | 2019-04-11 19:13 | NUR ---
REPORT RECEIVED FROM AM NURSE AT BEDSIDE. PT IN STABLE CONDITION. AAOX4. INTRODUCED SELF TO PT. NO COMPLAINTS OF PAIN. NO SOB. AFEBRILE. IV SITE R FA 22G RUNNING D5 1/2NS@80ML/HR PATENT AND INTACT. SKIN WARM, DRY, AND INTACT WITH NO OPEN WOUNDS. BED LOCKED IN LOW POSITION. CALL GRIFFIN WITHIN REACH. SAFETY PRECAUTION IN PLACE. ALL NEEDS MET AT THIS TIME.
--- NOTE | 2019-04-11 20:44 | NUR ---
KEFLEX AND SEROQUEL GIVEN PO. PT TOLERATED WELL.
--- NOTE | 2019-04-11 22:15 | NUR ---
PT MOVED FROM 109B TO 123B. PT TOLERATED THE MOVE WELL. NO S/S OF DISTRESS. WILL CONTINUE TO MONITOR.
--- NOTE | 2019-04-11 23:35 | NUR ---
PT SLEEPING COMFORTABLY IN BED BUT AROUSABLE. NO S/S OF DISTRESS NOTED. RESPIRATIONS EVEN, UNLABORED, AND WNL. WILL CONTINUE TO MONITOR.
[2019-04-12] VITALS: BP 144/54
[2019-04-12] MEDS: DEXT 5% / NACL 0.45% 1,000 ML IV SCH ×2 (00:45→12:19)
--- NOTE | 2019-04-12 01:40 | NUR ---
PT SLEEPING BUT AROUSABLE. NO S/S OF DISTRESS NOTED. NO COMPLAINTS OF PAIN. NO SOB. AFEBRILE. WILL CONTINUE TO MONITOR.
--- NOTE | 2019-04-12 02:45 | NUR ---
PT SLEEPING COMFORTABLY BUT AROUSABLE. NO S/S OF DISTRESS NOTED. RESPIRATIONS EVEN, UNLABORED, AND WNL. WILL CONTINUE TO MONITOR.
--- NOTE | 2019-04-12 04:30 | NUR ---
PT AWAKE AND ALERT IN BED COMPLAINTS OF ITCHINESS ON HER BACK. WASHED PATIENTS BACK AND APPLIED LOTION.
--- NOTE | 2019-04-12 06:15 | NUR ---
PT SLEEPING COMFORTABLY IN BED BUT AROUSABLE. NO S/S OF DISTRESS NOTED. NO COMPLAINTS OF PAIN. NO SOB. AFEBRILE. WILL CONTINUE TO MONITOR.
--- NOTE | 2019-04-12 07:10 | NUR ---
RECEIVED BEDSIDE REPORT FROM JONNATHAN STRONG. PT STABLE, SLEEPING, BUT EASILY AROUSABLE. NO SIGNS OF DISTRESS NOTED. DENIES PAIN OR SOB. NO REDNESS, SWELLING, OR INFLAMMATION NOTED ON IV SITE. CALL GRIFFIN WITHIN REACH. BED IN LOWEST POSITION, BED ALARM ON. SAFETY MEASURES IN PLACE. PLAN OF CARE REVIEWED.
[2019-04-12 08:00] VITALS: BP 134/68
[2019-04-12] MEDS: QUEtiapine FUMARATE 25 MG TAB PO SCH (09:09)
[2019-04-12] MEDS: CEPHALEXIN 500 MG CAP PO SCH (09:09)
--- NOTE | 2019-04-12 09:11 | NUR ---
ADMINISTERED SCHEDULED MEDICATIONS, PT TOLERATED WELL. NO OTHER NEEDS AT THIS TIME.
[2019-04-12 09:41] LABS: ANION GAP 12.7 (8-16); CARBON DIOXIDE 22.3 mmol/L (21-32); CHLORIDE 110 mmol/L (98-107); CREATININE 2.7 mg/dL (0.6-1.3); GLUCOSE 91 mg/dL (74-106); SODIUM SERUM 141 mmol/L (136-145); UREA NITROGEN, BLOOD 48 mg/dL (7-18)
--- NOTE | 2019-04-12 10:20 | NUR ---
PT STABLE, RESTING IN BED. NO NEEDS AT THIS TIME.
--- NOTE | 2019-04-12 10:29 | NUR ---
CONTACTED SARABJIT JENNINGS [facility] AT [phone], SHE STATED THAT SHE WILL DISCUSS THE CASE WITH HER DON MARY WHEN SHE GETS TO THE OFFICE AND WILL CALL ME BACK WITH UPDATE.
--- NOTE | 2019-04-12 11:04 | NUR ---
PER [facility], THEY ARE ABLE TO TAKE THE PATIENT BACK BUT STILL IN THE PROCESS OF ROOM CHANGES TO ACCOMMODATE PATIENT AND WILL CALL ME BACK FOR ROOM NUMBER SOON ROOM IS AVAILABLE.
[2019-04-12] MEDS: ACETAMINOPHEN EXTRA STRENGTH 500 MG TAB PO PRN (12:17)
--- NOTE | 2019-04-12 12:19 | NUR ---
PT REFUSED TO BE CONNECTED BACK TO IVF. ADMINISTERED PRN TYLENOL FOR C/O 6 HEADACHE. PT TOLERATED WELL. NO OTHER NEEDS AT THIS TIME.
--- NOTE | 2019-04-12 14:00 | NUR ---
RECEIVED A CALL FROM SARABJIT JENNINGS [facility] REQUESTING LATEST PROGRESS NOTES. PROGRESS NOTES SENT. NO ROOM NUMBER PROVIDED YET.
--- NOTE | 2019-04-12 14:36 | NUR ---
PT STABLE, SLEEPING, BUT EASILY AROUSABLE. NO SIGNS OF DISTRESS NOTED. CHEST RISE AND FALL VISIBLY NOTED.
[2019-04-12 16:00] VITALS: BP 168/75
--- NOTE | 2019-04-12 16:09 | NUR ---
PER SARABJIT FROM [facility], PATIENT WILL GO TO ROOM 19A UNDER DR. LUNA. SHE STATED THEY ARE NOT ABLE TO HELP WITH TRANSPORTATION. CONTACTED PATIENT'S BROTHER MARTÍNEZ PERKINS AT [phone], NO ANSWER. LEFT MESSAGE. WILL AWAIT FOR CALL BACK.
--- NOTE | 2019-04-12 16:27 | NUR ---
CONTACTED [facility] AT [phone], SPOKE TO MANOJ. AGILE DEVELOPER WILL BE AT 723. PRIMARY RN MADE AWARE.
--- NOTE | 2019-04-12 16:30 | NUR ---
VITAL SIGNS TAKEN, BP 168/75. WILL RECHECK BP. Addendum: 04/12/19 at 1650 by Maria Luisa Vargas RN PT STILL REFUSES IVF AT THIS TIME. WILL CONTINUE TO MONITOR.
--- NOTE | 2019-04-12 16:46 | NUR ---
CONTACTED IVONE OF [facility] AT [phone], MADE HER AWARE OF PATIENT DISCHARGING BACK TO [facility] AT 1915.
[2019-04-12 17:00] VITALS: BP 150/73
--- NOTE | 2019-04-12 17:00 | NUR ---
RECHECKED PT'S BP, 150/73. WILL CONTINUE TO MONITOR.
--- NOTE | 2019-04-12 18:15 | NUR ---
REPORT GIVEN TO YAMILETH FROM [facility]. CALLED PT'S SON MARTÍNEZ PERKINS AND DID NOT GET AN ANSWER. LEFT A MESSAGE TO INFORM REGARDING PT'S TRANSFER TO [facility].
--- NOTE | 2019-04-12 19:05 | NUR ---
ENDORSED PT TO JONNATHAN WANG FOR CONTINUITY OF CARE. PT STABLE.
--- NOTE | 2019-04-12 19:20 | NUR ---
PATIENT DISCHARGED TO [facility] VIA [facility] WITH [facility]. PATIENT AWAKE, ALERT, BEING CHANGED FOR DISCHARGE, AND IN STABLE CONDITION.
== END 2019-04-12 19:20 | DRG 689 ==
LOC: MED 19:59 → MTU 04-08 00:06
PROVIDERS: ADMIT Internal Medicine; ATTEND Internal Medicine
DX: N39.0 Urinary tract infection, site not specified (principal); N17.0 Acute kidney failure with tubular necrosis; G93.40 Encephalopathy, unspecified; N18.4 Chronic kidney disease, stage 4 (severe); F31.9 Bipolar disorder, unspecified; E83.52 Hypercalcemia; E78.5 Hyperlipidemia, unspecified; F41.9 Anxiety disorder, unspecified; G89.29 Other chronic pain; M54.2 Cervicalgia; F20.9 Schizophrenia, unspecified; I12.9 Hypertensive chronic kidney disease with stage 1 through stage 4 chronic kidney disease, or unspecified chronic kidney disease; E86.0 Dehydration; T45.2X5A Adverse effect of vitamins, initial encounter; Y92.89 Other specified places as the place of occurrence of the external cause; Z88.2 Allergy status to sulfonamides; Z79.82 Long term (current) use of aspirin; Z79.899 Other long term (current) drug therapy; Z82.49 Family history of ischemic heart disease and other diseases of the circulatory system
CPT/HCPCS: 36415; 76770; 80048; 80053; 80305; 81001; 82306; 83970; 84484; 85025; 87081; 87086; 87186; 96361; 96365; 96366; 96375; 97110; 97116; 97161-GP; 97530; 99285; C1758; G0480; G0482; J0696; J1200; J2270; J7030; Q0092